=== PATIENT | male | born 1950 | race Caucasian/White ===

== ENCOUNTER → 2016-08-01 | Outpatient (CLI) | payer MEDICARE, OTHER ==
--- NOTE | 2016-08-03 16:34 | RAD ---
EXAM DESCRIPTION: Pelvis, two views CLINICAL HISTORY: BONE PAIN FINDINGS/ IMPRESSION: No fracture. No lytic or blastic bony lesion. No advanced osteoarthritis of the hip joints or the sacroiliac joints or pubic symphysis. Mild osteoarthritis of the sacroiliac joints. 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
== END | disposition home or self-care (01) ==
LOC: RAD 13:42
PROVIDERS: ATTEND Nurse Practitioner Family
DX: M89.9 Disorder of bone, unspecified (principal)

== ENCOUNTER → 2017-02-27 | Outpatient (CLI) | payer MEDICARE, OTHER | END | disposition home or self-care (01) | LOC: GMAL 10:29 | PROVIDERS: ATTEND Family Medicine | DX: D51.3 Other dietary vitamin B12 deficiency anemia (principal); Z12.5 Encounter for screening for malignant neoplasm of prostate; E55.9 Vitamin D deficiency, unspecified | CPT/HCPCS: 82306; 82607; G0103 ==

== ENCOUNTER → 2017-05-13 | Outpatient (CLI) | payer MEDICARE, OTHER ==
--- NOTE | 2017-05-14 11:16 | MRI ---
EXAM DESCRIPTION: MRI right knee CLINICAL HISTORY: Right knee pain and swelling COMPARISON: None. TECHNIQUE: Multiplanar, multisequence MR images of the right knee FINDINGS: Tear of the posterior horn and body medial meniscus. The posterior horn is blunted along the free edge near the root attachment. Linear oblique tear through the inferior articular surface at the posterior horn/body junction and body with subluxation of the residual meniscus and marked blunting of the body. Medial femorotibial osteoarthritis with full-thickness chondral loss along both sides of the weightbearing joint. Minimal edema. Small joint line osteophytes No lateral meniscal tear. There is a ganglion associated with the anterior horn root attachment which measures about 8 x 4 x 5 mm. No full-thickness or high-grade lateral femorotibial chondrosis Patellar chondral thinning and surface irregularity. Grade 4 chondrosis upper lateral trochlea over approximately 0.5 x 0.9 cm with underlying subchondral edema. Grade 4 chondrosis along the margin of the lower medial patella with a marginal osteophytes and broad region of edema. Trochlear chondrosis, high-grade chondral thinning over a large region which spans both medially and laterally, approximately 2.9 cm transverse by 3 cm craniocaudal. Small focus of edema central apex of the trochlea Large intraligamentous ganglion of the ACL compatible with remote interstitial partial tear. Focal contour bulge anteriorly just proximal to the tibial insertion. PCL, MCL and fibular collateral ligaments are intact Biceps femoris, popliteus and iliotibial band tendons are normal. Chronic proximal medial patellar tendinosis without acute abnormality. Quadriceps tendon and tendons of the posterior medial knee are intact Large joint effusion with degenerative synovitis. Bose's cyst which measures about 4.6 x 2.1 x 1.8 cm, partially decompressed with edema tracking both superiorly and inferiorly. No intra-articular loose body IMPRESSION: Tear of the posterior horn and body medial meniscus with loss of meniscal substance along the body Chondrosis most significantly affecting medial femorotibial and patellofemoral Intraligamentous ganglion ACL compatible with a prior remote interstitial partial tear Joint effusion and Bose's cyst, partially decompressed Electronically signed by: Qamar Hernandez MD 05/14/2017 11:15 AM [facility]
== END | disposition home or self-care (01) ==
LOC: MRI 11:40
PROVIDERS: ATTEND Family Medicine
DX: M23.211 Derangement of anterior horn of medial meniscus due to old tear or injury, right knee (principal); M25.461 Effusion, right knee

== ENCOUNTER → 2017-07-08 | Outpatient (CLI) | payer OTHER ==
--- NOTE | 2017-07-08 20:34 | US ---
EXAM DESCRIPTION: Soft Tissue,Abdomen: ULTRASOUND. CLINICAL HISTORY: MASS. Right lower back. COMPARISON: None Available. TECHNIQUE: Transcutaneous scanning: Two-dimensional and Doppler modes. FINDINGS: Slightly hyperechoic mass measuring 3.6 x 2.3 x 1.1 cm parallel to the posterior abdominal wall. Corresponds to palpable lesion. Relatively homogeneous echoes, with adjacent adipose tissues slightly less echogenic. No fluid collections or calcifications. Nonvascular. IMPRESSION: 3.6 cm mass right lower back cutaneous tissues most likely a lipoma. Slightly hyperechoic in the adjacent adipose tissue. Nonvascular. No fluid component. Electronically signed by: Yoan Berkowitz MD 07/08/2017 8:33 PM DESK TOP PUBLISHER Workstation: [id number]
== END ==
LOC: US 14:18
PROVIDERS: ATTEND Nurse Practitioner Acute Care
DX: R22.9 Localized swelling, mass and lump, unspecified (principal)

== ENCOUNTER 2017-07-23 08:00 | Day surgery (SDC) | payer OTHER ==
--- NOTE | 2017-07-21 15:25 | RAD ---
EXAM DESCRIPTION: Chest,2 Views CLINICAL HISTORY: pre op COMPARISON: None FINDINGS: Two-view chest x-ray shows cardiomediastinal silhouette and pulmonary vasculature to be within normal limits. The lungs are normally aerated and clear. Costophrenic angles are sharp. Osseous structures are unremarkable. Mild bilateral apical pleural thickening is seen without obvious bony erosive changes. Consider short-term imaging follow-up. IMPRESSION: No radiographic evidence of acute cardiopulmonary disease. Electronically signed by: Fernando Boucher MD 07/21/2017 3:24 PM [facility]
[~2017-07-23 08:00] MED LIST: DEXAMETHASONE INJ 10 MG/ML VIAL ONE; LACTATED RINGERS 1,000 ML ONE; LIDOCAINE 2 % GEL 5 ML TUBE TOP ONE; METOCLOPRAMIDE HCL INJ 10 MG/2 ML VIAL ONE; MIDAZOLAM INJ 2 MG/2 ML VIAL ONE; NEOSTIGMINE METHYLSULFATE 1 MG/ML ML IV ONE; PROPOFOL 200 MG/20 ML VIAL IV ONE; ROCURONIUM BROMIDE 10 MG/ML VIAL ONE; SODIUM CHL 0.9% 100ML MINI-BAG 100 ML IVPB ONE; ceFAZolin SODIUM 1 GM VIAL ONE; fentaNYL CITRATE INJ 50 MCG/ML AMP ONE
[2017-07-23] MEDS ORDERED: BUPIVACAINE 0.25% W/EPI 50 ML VIAL INJ ONE (08:29)
--- NOTE | 2017-07-23 09:45 | OP ---
DATE OF PROCEDURE: 07/23/17 PREOPERATIVE DIAGNOSIS: 1. Tender subcutaneous mass, right midback. POSTOPERATIVE DIAGNOSIS: 1. Tender subcutaneous mass, right midback. PROCEDURE: 1. Excision of subcutaneous mass, right midback. SURGEON: Timmy Rob MD. SCRAPER OPERATOR: None. ANESTHESIA: Local infiltration of 0.25% Marcaine with epinephrine and general endotracheal anesthesia. INDICATION: The patient is a 67-year-old male with a mass that is tender. His primary care physician obtained an ultrasound which revealed it to be a subcutaneous mass, likely lipoma. He was brought to the Surgical Suite today for excision after the risks, benefits and alternatives to the procedure were discussed and accepted at the office including recommendation for this to be done under local, but the patient prefers general anesthesia. FINDINGS: The mass was identified in the immediate subcutaneous tissue. The underlying muscular fascia was opened with no extension into the muscle. PROCEDURE: After the patient was brought to the Surgical Suite and placed under general endotracheal anesthesia, he was then turned into the supine position and prepped and draped in the usual sterile manner. The kidney break was used. Surgical time-out was taken. The lesion which had been previously marked, transverse incision was made over the mass, first with a marking pen and then with infiltration of anesthesia. The skin was incised with a knife. The lesion was identified and then was resected using electrocautery and blunt dissection. When this was done, as noted, there was almost feeling of fullness in the muscle, so the fascia was opened under the lesion. Nothing was identified deep, so the fascia was closed with interrupted 2-0 Vicryl sutures. The wound was irrigated with saline. Hemostasis was noted to be adequate. Subcutaneous tissue was loosely reapproximated with interrupted 3-0 Vicryl. The skin edges were approximated with 3-0 Nylon vertical mattress sutures. A sterile pressure dressing was applied. The patient was awakened and taken to the Recovery Room in stable condition. Estimated blood loss was less than 25 mL. All sponge, needle and instrument counts were correct. #[id number] [facility]
[2017-07-23 11:08] VITALS: BP 127/72; TEMP 97; O2SAT 98
== END 2017-07-23 11:00 | disposition home or self-care (01) ==
LOC: AMB 08:00
PROVIDERS: ATTEND Surgery
DX: D17.1 Benign lipomatous neoplasm of skin and subcutaneous tissue of trunk (principal); K58.9 Irritable bowel syndrome, unspecified; K21.9 Gastro-esophageal reflux disease without esophagitis; J45.909 Unspecified asthma, uncomplicated; Z87.891 Personal history of nicotine dependence; Z88.8 Allergy status to other drugs, medicaments and biological substances; Z79.899 Other long term (current) drug therapy

== ENCOUNTER 2017-08-12 16:31 | Emergency (ER) | payer MEDICARE, OTHER ==
--- NOTE | 2017-08-12 16:49 | ED.PDOC ---
History of Present Illness - General Chief Complaint: Laceration Stated Complaint: laceration right ring finger Time Seen by Provider: 08/12/17 16:43 Source: patient Exam Limitations: no limitations - History of Present Illness Initial Comments: Alejandro Saldana 67 y/o male stated he was helping to bring down 2 metal recliners from a trailer but right ring finger caught in between the recliner causing laceration and deformity on his right ring finger which happened a few hours ago. Occurred: just prior to arrival Pain - Upper Extremity: moderate: Hand, right - right ring finger Method of Injury: other - see hpi Improving Factors: rest Worsening Factors: movement Allergies/Adverse Reactions: Allergies NO KNOWN ALLERGY Allergy (Verified 08/12/17 16:44) Home Medications: Ambulatory Orders Ascorbic Acid [Vitamin C] 1,000 mg PO DAILY 03/08/15 Aspirin [Baby Aspirin] 81 mg PO QD 03/08/15 Calcium Carbonate-Cholecalcife [Calcium + D] 2 tab PO DAILY 03/08/15 Montelukast Sodium 10 mg PO DAILY 03/08/15 Multiple Vitamins W/ Minerals [Centrum] 1 tab PO DAILY 03/08/15 Oxybutynin Chloride [Oxybutynin Chloride ER] 5 mg PO BID 03/08/15 Potassium Gluconate 595 mg PO DAILY 03/08/15 Psyllium [Metamucil] 0.52 - 1.04 gm PO DAILY@0700 03/08/15 Rosuvastatin [Crestor] 5 mg PO DAILY 03/08/15 Tamsulosin [Flomax] 0.4 mg PO QD 03/08/15 Vitamin E [E-400] 400 unit PO DAILY 03/08/15 Acetaminophen W/ Codeine [Tylenol w/Codeine 300-30 mg] 1 tab PO Q4HR PRN #30 tab 08/12/17 Cephalexin 1,000 mg PO BID #30 cap 08/12/17 Loratadine [Claritin] 10 mg PO DAILY 08/12/17 Review of Systems - Review of Systems Constitutional: States: no symptoms reported EENTM: States: no symptoms reported Respiratory: States: no symptoms reported Cardiology: States: no symptoms reported Gastrointestinal/Abdominal: States: no symptoms reported Musculoskeletal: States: see HPI Skin: States: see HPI Past Medical History (General) - Patient Medical History Hx Seizures: No Hx Stroke: No Hx Dementia: No Hx Asthma: No Hx of COPD: No Hx Cardiac Disorders: No Hx Congestive Heart Failure: No Hx Pacemaker: No Hx Hypertension: Yes Hx Thyroid Disease: No Hx Diabetes: No Hx Gastroesophageal Reflux: No Hx Renal Disease: No Hx of HIV: No Hx MRSA: No MRSA Source:: Wound Surgical History: other - right shoulder and forearm - Social History Hx Tobacco Use: No Hx Alcohol Use: No Hx Substance Use Treatment: No Family Medical History - Family History Mother Family History: Unknown Grandparents Family History: Unknown Physical Exam - Physical Exam General Appearance: Alert, Comfortable, No apparent distress Eyes, Ears, Nose, Throat Exam: normal ENT inspection Neck: non-tender, supple Cardiovascular/Respiratory: regular rate, rhythm, no M/R/G, normal peripheral pulses Abdominal Exam: non-tender, no organomegaly Back Exam: no CVA tenderness, no vertebral tenderness Shoulder Exam: normal inspection, non-tender, no evidence of injury Elbow/Forearm Exam: no evidence of injury Wrist Exam: no evidence of injury Hand Exam: laceration - right ring finger with deformity distal phalanx Progress - Progress Progress: 08/12/17 19:10 Vital Signs - 8 hr 08/12/17 08/12/17 16:44 17:37 Temperature 98.8 F Pulse Rate [R 101 H 75 Hand] Respiratory 20 20 Rate Blood Pressure 143/92 147/83 [Left Arm] O2 Sat by Pulse 97 95 Oximetry 08/12/17 19:24 D/W Dr. Shaikh orthopedist advised to reapeir laceration after adequate cleansing, give Rocephin and oral antibiotics .He will see patient in one week at his office - EKG/XRAY/CT XRAY: hand - fracture distal phalanx ring finger right displaced Procedures - Splinting Right 4th Digit Hand Hand-Made Type: orthoglass Splint: gutter splint Pre-Proc Neuro Vasc Exam: normal Post-Proc Neuro Vasc Exam: normal Progress: post reduction x -ray anatomic alignment right distal 4th digit - Laceration/Wound Repair Right Dorsal Finger Wound Length (cm): 2 - complex Wound's Depth, Shape: irregular Wound Explored: no foreign body removed Irrigated w/ Saline (cc's): 30 Betadine Prep?: No - hibiclens Anesthesia: 1% Lidocaine Volume Anesthetic (cc's): 8 - metacarpal block Wound Repaired With: sutures Suture Size/Type: 4:0, nylon Number of Sutures: 7 Layer Closure?: No Departure - Departure Clinical Impression: Open fracture of distal phalanx of ring finger Qualifiers: Encounter type: initial encounter Fracture alignment: displaced Laterality: right Qualified Code(s): S62.634B - Displaced fracture of distal phalanx of right ring finger, initial encounter for open fracture Time of Disposition: 19:14 Disposition: Discharge to Home or Self Care Condition: Good Departure Forms: ED Discharge - Pt. Copy, Patient Portal Self Enrollment Instructions: DI for Laceration Repair, DI for Laceration Repair -- Finger Referrals: Benton Gray III, MD [Primary Care Provider] - 1-2 Weeks Prescriptions: Acetaminophen W/ Codeine [Tylenol w/Codeine 300-30 mg] 1 tab PO Q4HR PRN #30 tab PRN Reason: Pain Cephalexin 1,000 mg PO BID #30 cap Home Medications: Ambulatory Orders Ascorbic Acid [Vitamin C] 1,000 mg PO DAILY 03/08/15 Aspirin [Baby Aspirin] 81 mg PO QD 03/08/15 Calcium Carbonate-Cholecalcife [Calcium + D] 2 tab PO DAILY 03/08/15 Montelukast Sodium 10 mg PO DAILY 03/08/15 Multiple Vitamins W/ Minerals [Centrum] 1 tab PO DAILY 03/08/15 Oxybutynin Chloride [Oxybutynin Chloride ER] 5 mg PO BID 03/08/15 Potassium Gluconate 595 mg PO DAILY 03/08/15 Psyllium [Metamucil] 0.52 - 1.04 gm PO DAILY@0700 03/08/15 Rosuvastatin [Crestor] 5 mg PO DAILY 03/08/15 Tamsulosin [Flomax] 0.4 mg PO QD 03/08/15 Vitamin E [E-400] 400 unit PO DAILY 03/08/15 Acetaminophen W/ Codeine [Tylenol w/Codeine 300-30 mg] 1 tab PO Q4HR PRN #30 tab 08/12/17 Cephalexin 1,000 mg PO BID #30 cap 08/12/17 Loratadine [Claritin] 10 mg PO DAILY 08/12/17 Additional Instructions: Call up Dr. Shaikh office -Orthopedist in am for follow up;Continue with home medications;Elevate right hand 20 degrees at bedtimeReturn to ER as needed
--- NOTE | 2017-08-12 17:15 | RAD ---
EXAM DESCRIPTION: Fingers,Right CLINICAL HISTORY: laceration COMPARISON: None. TECHNIQUE: 3 views of the fourth digit of the right hand dated 12 August 2017 FINDINGS: A transverse fracture the midshaft of the distal phalanx of the fourth digit of the right hand is observed. Mild radial angulation of the distal fracture fragment is observed. There is also a half shaft width of posterior displacement of the distal fracture fragment. IMPRESSION: Fracture the midshaft of the distal phalanx of the fourth digit of the right hand is observed. Electronically signed by: Benton Sánchez MD 08/12/2017 5:14 PM [facility]
[2017-08-12] MEDS ORDERED: TETANUS,DIPHTHERIA,PERTUSSIS 1 EA SYG IM ONE (17:33)
[2017-08-12 17:39] VITALS: O2SAT 95
[2017-08-12] MEDS ORDERED: LIDOCAINE 1% 10 ML VIAL INJ ONE ×2 (17:46→19:39)
[2017-08-12] MEDS ORDERED: WATER FOR INJ 10 ML VIAL INJ ONE ×2 (18:09→18:11)
[2017-08-12] MEDS ORDERED: CHLORHEXIDINE GLUCONATE 4 % 15 ML UD TOP ONE (18:09)
--- NOTE | 2017-08-12 18:52 | RAD ---
EXAM DESCRIPTION: Fingers,Right CLINICAL HISTORY: Post-reduction COMPARISON: None FINDINGS: 3 views were submitted. There is a fracture at the base of the right fourth distal phalanx in anatomic alignment.. Bone marrow attenuation is unremarkable. No radiopaque foreign body is identified. IMPRESSION: Fourth distal phalanx fracture is close to the nailbed and should be treated as an open fracture equivalent.. Electronically signed by: Yoan Lemos 08/12/2017 6:51 PM [facility]
[2017-08-12] MEDS ORDERED: HYDROCOD/APAP 10/325 (ER DISP) # 3 tablets PO ONE (19:12)
[2017-08-12] MEDS ORDERED: cefTRIAXone SODIUM 1 GM VIAL IM ONE (19:12)
[2017-08-12] MEDS ORDERED: HYDROcodone 10MG/APAP 325MG 1 EA TAB PO ONE (19:12)
[2017-08-12 19:46] VITALS: BP 138/79; TEMP 97.9
== END 2017-08-12 19:48 | disposition home or self-care (01) ==
LOC: ER 16:31
DX: S62.634B Displaced fracture of distal phalanx of right ring finger, initial encounter for open fracture (principal); I10 Essential (primary) hypertension; W23.0XXA Caught, crushed, jammed, or pinched between moving objects, initial encounter
CPT/HCPCS: 73140; 90471; 90715; A4216; J0696

== ENCOUNTER → 2017-10-12 | Outpatient (CLI) | payer MEDICARE, OTHER ==
--- NOTE | 2017-10-12 13:27 | RAD ---
EXAM DESCRIPTION: Hand,Right 3 Views CLINICAL HISTORY: FX COMPARISON: None Available. TECHNIQUE: AP, LATERAL, AND OBLIQUE FINDINGS: Three-view right hand shows a transversely oriented fracture of the distal phalanx of the fourth finger. Dressing surrounds the abnormal area. No radiopaque foreign body. Tiny bone fragment is present anteriorly. There is mild dorsal angulation. IMPRESSION: Fracture distal phalanx of the fourth digit of the right hand. Electronically signed by: Jeff Mendes MD 10/12/2017 1:25 PM CDT
== END ==
LOC: RAD 12:09
PROVIDERS: ATTEND Family Medicine
DX: S62.664A Nondisplaced fracture of distal phalanx of right ring finger, initial encounter for closed fracture (principal)

== ENCOUNTER → 2017-12-07 | Outpatient (CLI) | payer MEDICARE, OTHER ==
--- NOTE | 2017-12-07 16:35 | MRI ---
EXAM DESCRIPTION: Brain w/wo Contrast: Magnetic Resonance Imaging. CLINICAL HISTORY: MEMORY LOSS COMPARISON: MRI scan of the brain without gadolinium contrast 05/19/2016. TECHNIQUE: Multiplanar, high-field MRI, multiple conventional sequences, without and with gadolinium IV contrast. No adverse reactions. Multiple axial diffusion sequences. FINDINGS: Multiple bilateral foci of hyperintense FLAIR and T2-weighted signal in the periventricular white matter and reddy-white matter junctions of the cerebral hemispheres. More numerous in the subcortical white matter than periventricular . Slightly more lesions since the prior study. Chronic lesions are stable in size. These lesions are not associated with hemorrhage or diffusion restriction or contrast enhancement. Normal signal in the bilateral basal ganglia. No hemorrhage, no cerebral edema, no mass-effect. Normal contrast enhancement. Normal signal in the brainstem and cerebellar hemispheres. No hemorrhage, no cerebral edema, no mass-effect. Normal contrast enhancement. Concordance of the diffusion and non-diffusion sequences with no evidence of acute or subacute infarction. Cortical sulci, ventricles, and other CSF spaces, and the subdural spaces are normally configured.. No effacement or displacement. No midline shift. No extra-axial hemorrhage. Normal contrast enhancement. Normal flow signal void in the major vessels of the [place], and the venous sinuses. Left vertebral artery dominant. IACs are symmetric bilaterally. Normal signal in the bilateral mastoid air cells. No mass effect in the bilateral Cerebellopontine angles. Normal contrast enhancement. Pituitary gland occupies most of the sella. Normal contrast enhancement. Base of the cerebellar tonsils is above the foramen magnum. Mucoperiosteal thickening in some of the cavities of the paranasal sinuses. The bony calvarium is intact. Retro-orbital structures and facial muscles are grossly normal. IMPRESSION: 1. Diffuse abnormal white matter signal in the subcortical white matter more than the periventricular white matter. Slightly more lesions compared to the prior study. Not associated with hemorrhage, diffusion restriction, or contrast enhancement. Most likely related to cerebral microvascular disease. Less likely demyelinating process, migraine headaches, vasculitis, or inflammation. No extra-axial hemorrhage. 2. Normal signal in the brainstem and cerebellar hemispheres. Normal MRI noncontrast diffusion study with no evidence of acute or subacute infarction. Electronically signed by: Yoan Berkowitz MD 12/07/2017 4:34 PM CDT
== END ==
LOC: RAD 11:07
PROVIDERS: ATTEND Family Medicine
DX: R41.81 Age-related cognitive decline (principal); D51.3 Other dietary vitamin B12 deficiency anemia; R53.82 Chronic fatigue, unspecified

== ENCOUNTER → 2018-01-01 | Outpatient (CLI) | payer MEDICARE, OTHER ==
--- NOTE | 2018-01-01 16:03 | US ---
EXAM DESCRIPTION: Carotid Duplex CLINICAL HISTORY: CEREBROVASCULAR DISEASE COMPARISON: None Available. TECHNIQUE: Carotid Doppler ultrasound FINDINGS: Right Submitted images show no significant stenosis in the common carotid, internal carotid or external carotid arteries. Mild plaque at the carotid bifurcation. The following flow velocities were obtained: Common carotid artery peak systolic flow velocity measures 86 centimeters per second. Internal carotid artery peak systolic flow velocity measures 59 centimeters per second. External carotid artery peak systolic flow velocity measures 102 centimeters per second. Flow in the right vertebral artery is antegrade. The right internal carotid to common carotid peak systolic flow velocity ratio equals 0.7 which is normal. Left Submitted images show normal caliber of the left common carotid, internal carotid and external carotid arteries with no significant stenosis. The following flow velocities were obtained: Common carotid artery peak systolic flow velocity measures 103 centimeters per second. Internal carotid artery peak systolic flow velocity measures 61 centimeters per second. External carotid artery peak systolic flow velocity measures 107 centimeters per second. Flow in the left vertebral artery is antegrade. The left internal carotid to common carotid peak systolic flow velocity ratio of 0.6 is normal. IMPRESSION: No hemodynamically significant stenosis. Electronically signed by: Jeff Mendes MD 01/01/2018 4:02 PM CDT
== END ==
LOC: US 13:37
PROVIDERS: ATTEND Psychiatry & Neurology Neurology
DX: I67.89 Other cerebrovascular disease (principal)

== ENCOUNTER → 2018-02-09 | Outpatient (CLI) | payer MEDICARE, OTHER | LOC: GMAL 19:31 | PROVIDERS: ATTEND Family Medicine | DX: N39.0 Urinary tract infection, site not specified (principal); Z12.5 Encounter for screening for malignant neoplasm of prostate | CPT/HCPCS: 87086; G0103 ==

== ENCOUNTER → 2018-02-11 | Outpatient (CLI) | payer MEDICARE, OTHER ==
--- NOTE | 2018-02-11 16:35 | CT ---
EXAM DESCRIPTION: Head CLINICAL HISTORY: HISTORY OF FALLING COMPARISON: MRI December 07, 2017 TECHNIQUE: Noncontrast transaxial CT images of the head are obtained from base to vertex. This exam was performed according to our departmental dose-optimization program, which includes automated exposure control, adjustment of the mA and/or kV according to patient size and/or use of iterative reconstruction technique. FINDINGS: The midline structures are not displaced. Sulci are age-appropriate. There are areas of decreased attenuation in the periventricular white matter and the white matter of the centrum semiovale. There is no evidence of mass, mass-effect, hydrocephalus, or acute intracranial hemorrhage. No abnormal extra axial fluid collection is seen. Bone windows show no evidence of depressed skull fracture. Mild calcifications of the intracranial carotid arteries are noted. The visualized paranasal sinuses are unremarkable. IMPRESSION: 1. Age-appropriate atrophy with evidence of old small vessel ischemic type changes seen. 2. No acute abnormality is seen on noncontrast CT of the head. Electronically signed by: Fernando Boucher MD 02/11/2018 4:34 PM CDT
== END ==
LOC: MRI 16:03
PROVIDERS: ATTEND Physician Assistant
DX: Z91.81 History of falling (principal); G31.1 Senile degeneration of brain, not elsewhere classified

== ENCOUNTER → 2018-02-16 | Outpatient (CLI) | payer MEDICARE, OTHER ==
--- NOTE | 2018-02-16 18:10 | US ---
EXAM DESCRIPTION: Breast,Bilateral: Ultrasound CLINICAL HISTORY: 67 yearsMaleABN MAMMO. Patient fell. Complaining of pain upper outer quadrant right breast. Also over the medial left breast abutting the sternum No palpable mass in either location. COMPARISON: Digital diagnostic digital breast tomosynthesis and 2-D mammogram bilateral on this visit. TECHNIQUE: Transcutaneous scanning of the bilateral breast utilizing reddy-scale and Doppler modes. Scanning performed by the mud jack operator and Dr. Berkowitz. FINDINGS: Scanning at the 1100 clock position of the right breast 6 cm from the nipple. Scanning at the 900 clock position of the left breast 5 cm from the nipple. No distinct solid mass or cyst. No abnormal vascularity and no skin changes. No large calcifications or parenchymal edema.. IMPRESSION: 1. Bi-Rads Category 2: Benign. 2. Please refer to bilateral digital breast diagnostic tomosynthesis and diagnostic 2-D images and report on this visit. The FINDINGS and the FOLLOW-UP plan were reviewed in person with the patient after the examination. Written communication explaining the IMPRESSION and FOLLOW-UP will be mailed to the patient and referring care provider. Electronically signed by: Yoan Berkowitz MD 02/16/2018 6:09 PM CDT
--- NOTE | 2018-02-17 14:27 | MAM ---
EXAM DESCRIPTION: 3D Diagnostic, Bilateral: Digital Mammography CLINICAL HISTORY: 67 yearsMaleBREAST LUMP . Patient early dementia. Fell on sidewalk. Pain right upper quadrant right breast and medial left breast. COMPARISON: Targeted bilateral breast ultrasound following this examination. No prior reports available.. TECHNIQUE: Bilateral CC LM MLO projection full-field images, digital mammographic tomosynthesis technique. Skin marker over tender area upper outer quadrant right breast. CAD not utilized. FINDINGS: The breast parenchymal density pattern is: Almost entirely fatty. No skin thickening or nipple retraction skin marker is seen on the right breast. No new focal, stellate mass or density, focal asymmetry , and no suspicious microcalcifications bilaterally. Ultrasound: Scanning at the 1100 clock position of the right breast 6 cm from the nipple. Scanning at the 900 clock position of the left breast 5 cm from the nipple. No distinct solid mass or cyst. No abnormal vascularity and no skin changes. No large calcifications or parenchymal edema.. IMPRESSION: Benign exam. BIRAD CATEGORY: 2 BENIGN FINDINGS. RECOMMENDATIONS: FOLLOW UP: Any further breast imaging should be based upon additional clinical findings. Electronically signed by: Yoan Berkowitz MD 02/17/2018 2:25 PM CDT
== END ==
LOC: MAMMO 12:30
PROVIDERS: ATTEND Physician Assistant
DX: N63.20 Unspecified lump in the left breast, unspecified quadrant (principal)
CPT/HCPCS: 76641; 77066; G0279

== ENCOUNTER → 2018-03-11 | Outpatient (CLI) | payer MEDICARE, OTHER | LOC: GMAL 16:43 | PROVIDERS: ATTEND Family Medicine | DX: R39.15 Urgency of urination (principal); N41.8 Other inflammatory diseases of prostate ==

== ENCOUNTER → 2018-03-12 | Outpatient (CLI) | payer MEDICARE, OTHER ==
--- NOTE | 2018-03-12 10:35 | CT ---
EXAM DESCRIPTION: Abdoment/Pelvis w/o Contrast CLINICAL HISTORY: 68 years Male, ABDOMINAL PAIN COMPARISON: 21 Oct 2013 TECHNIQUE: Transaxial images were obtained without intravenous or oral contrast media. Sagittal and coronal reconstruction was obtainedThis exam was performed according to our departmental dose-optimization program, which includes automated exposure control, adjustment of the mA and/or kV according to patient size and/or use of iterative reconstruction technique. FINDINGS: The lung bases are clear. The liver and spleen are normal in appearance. No biliary ductal abnormality is seen. The gallbladder is normal in appearance. No adrenal masses are detected. The pancreas is normal in appearance. Imaging of the kidneys reveals no evidence of hydronephrosis mass cyst or calcification. Diverticulosis of the sigmoid and descending colon is observed without evidence of diverticulitis. The appendix is identified and is normal in appearance. No bone abnormality is seen. No free pelvic fluid is observed. No inguinal region abnormality is detected. IMPRESSION: 1. Uncomplicated diverticulosis of the colon Electronically signed by: Benton Sánchez MD 03/12/2018 10:34 AM CDT
== END ==
LOC: CT 08:10
PROVIDERS: ATTEND Family Medicine
DX: K57.30 Diverticulosis of large intestine without perforation or abscess without bleeding (principal); R10.84 Generalized abdominal pain

== ENCOUNTER 2018-03-29 21:36 | Inpatient (IN) | payer MEDICARE, OTHER ==
--- NOTE | 2018-03-29 22:25 | ED.PDOC ---
History of Present Illness - General Chief Complaint: GI Problem Stated Complaint: rt upper abd pain Time Seen by Provider: 03/29/18 22:07 Exam Limitations: clinical condition - dementia - History of Present Illness Initial Comments: Alejandro Saldana 68 y/o male brought by family with RUQ pain since 24 March 2018 stated comes and goes during that day but no N/V/D,no hematuria.His pain went away since then but stareted to complain about it Thursday told him to come to hospital but declined again became asymptomatic.Called up his Md today but fully booked then advised to come to ER if symptoms recurs.Has history of dementia.Patient was pointing where he is hurting. Abdominal Pain Onset Location: RUQ Pain Radiation: no radiation Quality: moderate, other - patient unable to describe just tells pain Timing/Duration: other - see hpi Improving Factors: nothing Worsening Factors: nothing Associated Symptoms: denies symptoms Review of Systems - Review of Systems Constitutional: States: other - loss of appetite; weight loss EENTM: States: no symptoms reported Respiratory: States: no symptoms reported Cardiology: States: no symptoms reported Gastrointestinal/Abdominal: States: see HPI Genitourinary: States: no symptoms reported Skin: States: no symptoms reported Neurological: States: see HPI, other - dementia Past Medical History (General) - Patient Medical History Hx Seizures: No Hx Stroke: No Hx Dementia: No Hx Asthma: No Hx of COPD: No Hx Cardiac Disorders: No Hx Congestive Heart Failure: No Hx Pacemaker: No Hx Hypertension: Yes Hx Thyroid Disease: No Hx Diabetes: No Hx Gastroesophageal Reflux: No Hx Renal Disease: No Hx Cancer: No Hx of HIV: No Hx Hepatitis C: No Hx MRSA: No MRSA Source:: Wound Surgical History: no surgical history - Vaccination History Hx Tetanus, Diphtheria Vaccination: No Hx Influenza Vaccination: Yes - Social History Hx Tobacco Use: No Hx Chewing Tobacco Use: No Hx Alcohol Use: No Hx Substance Use: No Hx Substance Use Treatment: No Hx Depression: No Hx Physical Abuse: No Hx Emotional Abuse: No Hx Suspected Abuse: No Family Medical History - Family History Grandparents Family History: Unknown Mother Family History: Unknown Physical Exam - Physical Exam General Appearance: Alert, Comfortable, No apparent distress Eyes, Ears, Nose, Throat Exam: normal ENT inspection Neck: non-tender, full range of motion, supple Respiratory: chest non-tender, lungs clear, normal breath sounds Cardiovascular/Chest: normal peripheral pulses, regular rate, rhythm, no murmur Peripheral Pulses: No deficit Gastrointestinal/Abdominal: soft, tenderness - ruq ,no peritoneal signs but positive [place] sign Back Exam: no CVA tenderness, no vertebral tenderness Extremity: non-tender, no pedal edema, no calf tenderness Neurologic: alert, oriented x 3 - disoriented to place Skin Exam: normal color, warm/dry Lymphatic: no adenopathy Progress - Progress Progress: 03/30/18 00:07 Vital Signs - 24 hr 03/29/18 03/30/18 21:45 00:00 Temperature 98.1 F Pulse Rate [ 103 H 96 H monitor] Respiratory 18 16 Rate Blood Pressure 121/76 120/73 [Left Arm] O2 Sat by Pulse 94 L Oximetry - Results/Orders Results/Orders: 03/29/18 22:25 IV Care:Saline Lock per Protoc QSHIFT EKG Assessment DAILY 03/29/18 22:30 EKG STAT 03/29/18 23:40 Hold Metformin x 48Hrs [id number] 03/30/18 00:09 Sodium Chloride 0.9% 1000ML [Ns 1000 ml] 1,000 ml IVS ONCE Laboratory Results - last 24 hr 03/29/18 03/29/18 22:42 23:24 WBC 9.1 RBC 4.46 L Hgb 13.1 L Hct 39.2 L MCV 88.0 MCH 29.3 MCHC 33.5 RDW 13.7 Plt Count 489 H MPV 7.0 L Absolute Neuts (auto) 5.70 Absolute Lymphs (auto) 2.10 Absolute Monos (auto) 0.80 Absolute Eos (auto) 0.40 Absolute Basos (auto) 0.10 Neutrophils % 62.5 Lymphocytes % 23.7 Monocytes % 8.7 Eosinophils % 4.1 Basophils % 1.0 PT 10.3 INR 1.03 PTT (SP) 27.4 Sodium 138 Potassium 3.6 Chloride 105 Carbon Dioxide 25 Anion Gap 11.6 L BUN 12 Creatinine 0.49 L BUN/Creatinine Ratio 24.5 H Random Glucose 84 Serum Osmolality 274.6 L Calcium 9.0 Magnesium 2.2 Total Bilirubin 0.7 Direct Bilirubin 0.1 Indirect Bilirubin 0.6 AST 38 ALT 56 Alkaline Phosphatase 79 Creatine Kinase 27 L CK-MB (CK-2) 1.5 CK-MB (CK-2) % Not Reportable Troponin I 0.03 Serum Total Protein 7.0 Albumin 3.3 Lipase 34 Urine Color Yellow Urine Appearance Clear Urine pH 7.5 Ur Specific [place] 1.015 Urine Protein Negative Urine Glucose (UA) Negative Urine Ketones Negative Urine Blood Negative Urine Nitrite Negative Urine Bilirubin Negative Urine Urobilinogen 1.0 Ur Leukocyte Esterase Negative Urine RBC 0 Urine WBC 0 Ur Epithelial Cells 0-1 Urine Bacteria 0 - EKG/XRAY/CT EKG: Sinus, nonspecific ST T wave Chg Comments: HR-95 XRAY: chest - no acute abnormalities noted CT Ordered: Yes - abd/p-possible cholecystitis;groundglass opacification right lwer lobe lung Departure - Departure Clinical Impression: Acute cholecystitis without calculus, History of dementia Abdominal pain Qualifiers: Abdominal location: right upper quadrant Qualified Code(s): R10.11 - Right upper quadrant pain Time of Disposition: 01:36 Disposition: Admit Patient Condition: Fair Departure Forms: Patient Portal Self Enrollment Referrals: Benton Gray III, MD [Primary Care Provider] - 1-2 Weeks Home Medications: Ambulatory Orders Ascorbic Acid [Vitamin C] 1,000 mg PO DAILY 03/08/15 Aspirin [Baby Aspirin] 81 mg PO QD 03/08/15 Calcium Carbonate-Cholecalcife [Calcium + D] 2 tab PO DAILY 03/08/15 Montelukast Sodium 10 mg PO DAILY 03/08/15 Multiple Vitamins W/ Minerals [Centrum] 1 tab PO DAILY 03/08/15 Oxybutynin Chloride [Oxybutynin Chloride ER] 5 mg PO BID 03/08/15 Potassium Gluconate 595 mg PO DAILY 03/08/15 Psyllium [Metamucil] 0.52 - 1.04 gm PO DAILY@0700 03/08/15 Rosuvastatin [Crestor] 5 mg PO DAILY 03/08/15 Tamsulosin [Flomax] 0.4 mg PO QD 03/08/15 Vitamin E [E-400] 400 unit PO DAILY 03/08/15 Acetaminophen W/ Codeine [Tylenol w/Codeine 300-30 mg] 1 tab PO Q4HR PRN #30 tab 08/12/17 Cephalexin 1,000 mg PO BID #30 cap 08/12/17 Loratadine [Claritin] 10 mg PO DAILY 08/12/17 Decision To Admit - Decistion To Admit Decision to Admit Reason: Admit from ER Decision to Admit Date: 03/30/18 - D/W Dr. Rob-surgeon;Alejandro Payton-ANP/ Hospitalist Decision to Admit Time: 01:36
--- NOTE | 2018-03-29 22:56 | RAD ---
PROCEDURE: XR CHEST 1 VIEW HISTORY: RUQ pain COMPARISON: 07/21/2017 TECHNIQUE: Single projection of the chest was done. FINDINGS: The lung fuchs are well inflated . There are no discrete airspace infiltrates, pneumothoraces or pleural effusions. The pulmonary vascularity is normal. The cardiomediastinal silhouette is unremarkable for patient's age and sex. IMPRESSION: There is no acute pleural-parenchymal process seen in the imaged lung fuchs. Location of Interpretation: Teleradiology Electronically signed by: Baron Richard MD 03/29/2018 10:55 PM CDT Workstation: [id number]
[2018-03-29] MEDS ORDERED: MORPHINE SULFATE INJ 10 MG/ML VIAL IV ONE (23:05)
[2018-03-30] MEDS ORDERED: SODIUM CHLORIDE 0.9% 1000ML 1,000 ML IVS ONE (00:09)
--- NOTE | 2018-03-30 00:55 | CT ---
EXAM: Abdomen/Pelvis w/Contrast CLINICAL INDICATION: 68-year-old male with RIGHT upper quadrant abdominal pain. COMPARISON: 03/12/2018. EXAMINATION: CT of the abdomen and pelvis was performed following intravenous administration of contrast. Oral contrast was not administered. Multiplanar reformatted images were provided. This exam was performed according to our departmental dose optimization program which includes use of automated exposure control, adjustment of the mA and/or kV according to patient size and/or use of iterative reconstruction technique. FINDINGS: Evaluation through the upper abdomen is limited secondary to adjacent patient arm positioning and motion artifact. Chest: Limited evaluation through the lung bases reveals a focal area of loss of the level of the uppermost visualized segment of the RIGHT. Areas of swirled linear opacities are present within and just adjacent to this area of groundglass opacification raising the question of round atelectasis versus consolidation/pneumonia. No gross pneumothoraces or pleural effusion. The Heart size is within normal limits. No pericardial effusion. Abdomen and pelvis: The liver, pancreas, spleen, bilateral kidneys and bilateral adrenal glands are within normal limits. Mild, nonspecific enhancement of the wall of the gallbladder with trace pericholecystic stranding and/or trace fluid raising the concern for acute cholecystitis. The vessels are patent and normal in caliber. No abdominopelvic lymph nodes are noted to be pathologically enlarged by CT measurement criteria. The bowel is within normal limits without abnormal bowel wall thickness or bowel dilation. Diverticular disease without findings to suggest diverticulitis. No free air. No free abdominopelvic fluid collections. The appendix is within normal limits. The osseous structures are within normal limits. IMPRESSION: 1. Mild, nonspecific enhancement of the wall of the gallbladder with trace pericholecystic stranding and/or trace fluid raising the concern for cholecystitis in the correct clinical setting, however unchanged in comparison to CT examination dated 03/12/2018. Further evaluation RIGHT upper quadrant sonography or nuclear medicine scintigraphy may be considered. 2. Linear and groundglass opacification of the RIGHT raising the question of round atelectasis versus consolidation/pneumonia. Please correlate with patient clinical findings and follow-up for resolution. 3. Diverticular disease without findings to suggest diverticulitis. Electronically signed by: Hemalatha Leo MD 03/30/2018 12:53 AM CDT
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
[2018-03-30] MEDS ORDERED: ONDANSETRON INJ 4 MG/2 ML VIAL IV PRN (03:28)
[2018-03-30] MEDS: IV SET AND CAP CHANGE INJ INJ SCH (03:42)
[2018-03-30] MEDS ORDERED: metroNIDAZOLE IV PREMIX 500MG 100 ML IVPB ONE ×3 (03:46→19:40)
[2018-03-30] MEDS: KCL 20MEQ/D5NS 1,000 ML IVS PRN ×2 (04:09→17:37)
[2018-03-30] MEDS: SODIUM CHLORIDE 0.9% (FLUSH) 10 ML SYG IV PRN (04:09)
[2018-03-30] MEDS: metroNIDAZOLE IV PREMIX 500MG 500 MG in PREMIX BAG 1 BAG IVPB SCH ×3 (04:10→20:29)
[2018-03-30] MEDS: levoFLOXacin 750MG IV 750 MG in PREMIX BAG 1 BAG IVPB SCH (05:24)
--- NOTE | 2018-03-30 12:43 | US ---
EXAM DESCRIPTION: Gall Bladder CLINICAL HISTORY: abd pain COMPARISON: CT chest same day TECHNIQUE: Real-time sonographic images of the right upper quadrant of the abdomen are obtained. FINDINGS: Pancreas is unremarkable. The right lobe of the liver measures 16.7cm. The liver is diffusely homogeneous and normal in echogenicity. No focal hepatic mass is seen. The gallbladder is normally distended and contains several foci of increased echogenicity in the neck of the gallbladder measuring up to 6 mm.. No gallbladder wall thickening or pericholecystic fluid is seen. The common bile duct measures 7 mm in greatest diameter. The right kidney measures 12.7 cm. There is a 1.0 x 0.6 x 1.0 cm cyst of the right kidney.. Visualized IVC and abdominal aorta are within normal limits. IMPRESSION: Cholelithiasis without ultrasound evidence of acute cholecystitis. Common bile duct is upper limits of normal to slightly dilated at 7 mm. Electronically signed by: Fernando Boucher MD 03/30/2018 12:42 PM CDT
--- NOTE | 2018-03-30 13:51 | CONS ---
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 He was admitted last night after presenting in the Emergency Room with severe right upper quadrant pain. A CT scan was obtained which revealed a thickened gallbladder wall with a question of inflammatory process around it. There was no fever, no nausea or vomiting. This morning, he was seen and is afebrile. He is basically unresponsive as he has developed some dementia and we have obtained an ultrasound this morning. PAST MEDICAL HISTORY: 1. Diverticulosis. 2. Irritable bowel syndrome. 3. Recently, a dementia of uncertain type. PAST SURGICAL HISTORY: 1. Rotator cuff repair. 2. Right forearm fracture. 3. Right knee arthroscopy. 4. Excision of subcutaneous lipoma of the back by ak. 5. Cardiac catheterization. 6. Colonoscopy. 7. Echocardiogram. CURRENT MEDICATIONS: 1. Xanax. 2. Ativan. 3. Megace. 4. Calcium gluconate. 5. Zoloft. 6. Donepezil. 7. Aspirin. 8. Multivitamins. 9. Claritin. 10. Flonase. 11. Namenda. 12. MiraLAX. 13. Flomax. 14. Crestor. ALLERGIES: NO KNOWN DRUG ALLERGIES. FAMILY HISTORY: Positive for colon cancer. SOCIAL HISTORY: The patient is . He is disabled from dementia. He worked in the oil field. He smoked many years ago but quit in 1989. He rarely used alcohol. REVIEW OF SYSTEMS: Weight loss since August. Gastrointestinal-crawford, he has had spells of diarrhea, but no blood and no urinary symptoms. PHYSICAL EXAMINATION: GENERAL: He responds, but is confused. He continues to say 34 65 and throw it to him. He is in no acute distress. VITAL SIGNS: The patient is currently afebrile, normotensive. HEENT: Sclerae nonicteric. Mucous membranes moist. He is somewhat cachectic appearing, withdrawn cheeks. NECK: Without adenopathy. BACK: Without CVA tenderness. CHEST: Equal breath sounds bilaterally. HEART: Regular rate and rhythm. ABDOMEN: Soft. There is minimal tenderness, if any at all. Bowel sounds are positive. RECTAL: Deferred. EXTREMITIES: Without cyanosis, clubbing or edema. LABORATORY: This morning, white count 9.4, hemoglobin 12, platelet count 462, 000, 60% neutrophils. Chemistries reveal potassium 3.7, creatinine 0.62. Normal liver function tests. Decreased albumin and total protein. Ultrasound revealed no signs of acute cholecystitis, but did reveal gallstones. I reviewed the CT scan and it was unchanged from a previous CT scan from 03/12/18 as far as the wall thickening. Also noted on both CT scans was a large amount of stool, especially in the right colon. ASSESSMENT: 1. Right upper quadrant abdominal pain. 2. Cholelithiasis. 3. Significant dementia. 4. Several other medical problems. PLAN: We will begin a clear liquid diet. We will give the patient doses of cathartics from above and repeat his x-ray and lab in the morning. #[id number] [facility]
[2018-03-30] MEDS: MAGNESIUM HYDROXIDE 30 ML UD PO SCH ×2 (13:56→18:12)
[2018-03-30] MEDS: MORPHINE SULFATE INJ 10 MG/ML VIAL IV PRN ×2 (14:29→20:25)
--- NOTE | 2018-03-30 14:32 | PN ---
SUPERVISING PHYSICIAN: Qamar Valle MD DATE: 03/30/18 SUBJECTIVE: The patient is lying in bed with his eyes closed. He frequently shouts inappropriate phrases. He does occasionally answer questions, but not always appropriately. His and friend are at bedside. He has just taken some Milk of Magnesia and is getting quite agitated as he takes Ativan as needed during the day. Otherwise, he has had no complaints of shortness of breath, chest pain. He does occasionally complain of that right upper quadrant abdominal pain, but it is improved since last night in the Emergency Room. OBJECTIVE: VITAL SIGNS: Afebrile. Heart rate 94. Blood pressure 110/70. Respiratory rate 18. O2 saturation 93% on room air. RESPIRATORY: Essentially clear to auscultation bilaterally. CARDIAC: Regular rate and rhythm. GASTROINTESTINAL: Abdomen is soft. It is nondistended. He grimaces slightly with palpation to the right upper quadrant. Bowel sounds are positive. EXTREMITIES: No cyanosis, clubbing or edema. NEUROLOGIC: He awakens. He is oriented to person only. LABORATORY: Electrolytes are basically within normal limits. Serum total protein is low at 6.1. Albumin is low at 2.8. WBCs 9.4, hemoglobin 12.1, hematocrit 36.6. Gallbladder ultrasound shows cholelithiasis without ultrasound evidence of acute cholecystitis. All other labs and films have been reviewed via the EMR. ASSESSMENT: 1. Right upper quadrant abdominal pain with findings on CT concerning for cholecystitis. Sonogram shows cholelithiasis without evidence of acute cholecystitis. Dr. Rob has been consulted. 2. History of diverticulosis without any current findings on CT indication diverticulitis. 3. Irritable bowel syndrome with last colonoscopy noted to be in [address] Gray with moderate left sided diverticula and three less than 1 cm tubular adenomas removed. 4. 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 5. Constipation per CT scan. PLAN: We will continue present supportive care. Dr. Rob has been consulted on this case and is monitoring his gallbladder issues. I have given him some Milk of Magnesia as recommended by Dr. Rob. Repeat abdominal x-ray in the morning as well as repeat lab. I have also given him Ativan IV p.r.n. for agitation. We will continue with his Levaquin and Flagyl for now. A clear liquid diet has been started. We will monitor the patient closely and follow as needed. Dr. Valle is the collaborating physician and available for consultation. #[id number] [facility]ITALJorge [facility]
[2018-03-30] MEDS ORDERED: DONEPEZIL HCL 5 MG TAB ONE (20:22)
[2018-03-30] MEDS: MEMANTINE 10 MG TAB PO SCH (20:29)
[2018-03-30] MEDS: SERTRALINE HCL 50 MG TAB PO SCH (20:29)
[2018-03-30] MEDS: ASPIRIN (CHEWABLE) 81 MG TAB PO SCH (20:30)
[2018-03-30] MEDS ORDERED: NON-FORMULARY MEDICATION 1 EA MIS (Donepezil Hydrochloride [Donepezil Hcl] 10 MG) PO SCH (21:00)
[2018-03-31] MEDS ORDERED: metroNIDAZOLE IV PREMIX 500MG 100 ML IVPB ONE ×4 (01:53→19:50)
[2018-03-31] MEDS: MORPHINE SULFATE INJ 10 MG/ML VIAL IV PRN ×4 (02:50→22:56)
[2018-03-31] MEDS: metroNIDAZOLE IV PREMIX 500MG 500 MG in PREMIX BAG 1 BAG IVPB SCH ×3 (03:54→20:21)
[2018-03-31] MEDS: KCL 20MEQ/D5NS 1,000 ML IVS PRN ×3 (03:55→22:49)
[2018-03-31] MEDS: levoFLOXacin 750MG IV 750 MG in PREMIX BAG 1 BAG IVPB SCH (05:13)
--- NOTE | 2018-03-31 06:27 | RAD ---
CLINICAL HISTORY:abd pain. :1950. Sex:Male. TECHNIQUE: Supine and upright views of the abdomen. There is no intestinal dilatation. There is no mass. There is no free air. There is no opaque calculus. Skeletal structures are unremarkable. The visible lung bases are clear IMPRESSION: 1. No acute radiographic findings.. Electronically signed by: Fransico Santana MD 03/31/2018 6:26 AM CDT Workstation: [id number]
[2018-03-31] MEDS ORDERED: POLYETHYLENE GLYCOL 3350 17 GM PCKT PO SCH ×2 (09:00)
[2018-03-31] MEDS ORDERED: ROSUVASTATIN 5 MG PO SCH (09:00)
[2018-03-31] MEDS ORDERED: MEGESTROL ACETATE SUSP 400 MG/10 ML UD PO SCH (09:00)
[2018-03-31] MEDS: FLUTICASONE PROP 0.05% NASAL 16 GM BTTL BNAS SCH (09:12)
[2018-03-31] MEDS: MONTELUKAST 10 MG TAB PO SCH (09:12)
[2018-03-31] MEDS: MEMANTINE 10 MG TAB PO SCH ×2 (09:12→21:27)
[2018-03-31] MEDS: TAMSULOSIN 0.4 MG CAP PO SCH (09:12)
[2018-03-31] MEDS: LORATADINE 10 MG TAB PO SCH (09:12)
[2018-03-31] MEDS: POTASSIUM GLUCONATE 595 MG PO SCH (10:51)
[2018-03-31] MEDS: MEGESTROL ACETATE SUSP 400 MG/10 ML UD PO SCH (10:52)
[2018-03-31] MEDS ORDERED: MIDAZOLAM INJ 5 MG/5 ML VIAL IV ONE (11:05)
[2018-03-31] MEDS ORDERED: fentaNYL CITRATE INJ 50 MCG/ML AMP IV ONE (11:05)
[2018-03-31] MEDS ORDERED: VECURONIUM BROMIDE 10 MG VIAL IV ONE (11:05)
[2018-03-31] MEDS: POLYETHYLENE GLYCOL 3350 17 GM PCKT PO SCH (12:32)
[2018-03-31] MEDS ORDERED: ENOXAPARIN SODIUM 40 MG/0.4 ML SYG SUBCU SCH (14:30)
[2018-03-31] MEDS ORDERED: ENOXAPARIN SODIUM 60 MG/0.6 ML SYG SUBCU ONE (15:33)
--- NOTE | 2018-03-31 15:56 | US ---
EXAM DESCRIPTION: Venous,Lower Extremity LT CLINICAL HISTORY: leg swelling COMPARISON: None Available. TECHNIQUE: Left lower extremity venous grayscale, spectral, and color Doppler sonographic images. FINDINGS: There is occlusive deep venous thrombosis throughout the superficial femoral, popliteal, peroneal, and posterior tibial veins. There is some residual flow in the common femoral vein. IMPRESSION: Extensive occlusive deep venous thrombosis in the left leg as described above. Findings called to Rimma Oneill RN, on 03/31/2018 at 1553 hours. Electronically signed by: Johnny Ramon MD 03/31/2018 3:54 PM CDT
--- NOTE | 2018-03-31 16:59 | PN ---
DATE: 03/31/18 SUPERVISING PHYSICIAN: Qamar Valle M.D. SUBJECTIVE: The patient is lying quietly in bed. His is at his bedside. She said that the patient has complained of left lower leg pain and that he had had some shortness of breath at home as well as being very immobile at home over the last month or so. I explained that he would be getting treatment for his left leg DVT in the form of Lovenox and we would treat him after discharge, and he will followup with Dr. Gray. The patient has had no complaints of shortness of breath, nausea, vomiting, diarrhea. He did have several bowel movements from his Milk of Magnesia he was given yesterday. The patient only gives monosyllabic answers to some simple questions. OBJECTIVE: VITAL SIGNS: temperature 98.9, heart rate 87, blood pressure 112/72 , respiratory rate 18, O2 sat is 95% on room air. RESPIRATORY: Essentially clear to auscultation bilaterally. Slightly diminished at the bases. CARDIAC: Regular rate and rhythm. GASTROINTESTINAL: Abdomen is soft, nondistended. He is slightly tender, especially in the epigastric and right upper quadrant. Bowel sounds are hypoactive. NEUROLOGIC: He is awake, alert and oriented to person only. EXTREMITIES: His left lower foot and ankle area are slightly edematous, +2 pedal edema. Right pedal pulse is +2, left pedal pulse is +1. It is slightly warm to the touch. LABORATORY: WBCs are 8.3 with 12.3 hemoglobin and 37.6 hematocrit. Electrolytes are basically within normal limits. Lower extremity Doppler of the left leg shows extensive occlusive DVT in the left leg throughout the superficial femoral, popliteal, peroneal and posterior tibial veins. There is some residual flow in the common femoral vein. Abdominal x-ray shows no acute radiographic findings. All other labs and films have been reviewed via the EMR. ASSESSMENT: 1. Left lower leg deep venous thrombosis per venous Doppler presently being treated with Lovenox at 1 mg per kg. 2. Right upper quadrant abdominal pain with findings on CT concerning for cholecystitis. Sonogram shows cholelithiasis without evidence of acute cholecystitis. Dr. Rob has been consulted. 3. History of diverticulosis without any current findings on CT indication diverticulitis. 4. Irritable bowel syndrome with last colonoscopy noted to be in [address] Isaac with moderate left sided diverticula and three less than 1 cm tubular adenomas removed. 5. 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 6. Constipation per CT scan. PLAN: We will continue present supportive care. I have increased his Lovenox to 1 mg per kg every 12 hours for treatment of his DVT. Will transition him over to Eliquis or Xarelto once the patient begins taking oral medications without difficulty. I have ordered an abdominal x-ray for in the morning. Dr. Rob has advanced his diet to a full liquid. We are encouraging him to eat. Gallbladder issues will be per Dr. Rob. Otherwise we will continue to monitor him closely and follow as needed. Dr. Valle is the collaborating physician available for consultation. #[id number] [facility]
[2018-03-31] MEDS ORDERED: ENOXAPARIN SODIUM 100 MG/ML SYG SUBCU ONE (19:47)
[2018-03-31] MEDS: DONEPEZIL HCL 5 MG TAB PO SCH (21:27)
[2018-03-31] MEDS: ASPIRIN (CHEWABLE) 81 MG TAB PO SCH (21:27)
[2018-03-31] MEDS: SERTRALINE HCL 50 MG TAB PO SCH (21:27)
[2018-04-01] MEDS: MORPHINE SULFATE INJ 10 MG/ML VIAL IV PRN ×2 (01:08→15:14)
[2018-04-01] MEDS: metroNIDAZOLE IV PREMIX 500MG 500 MG in PREMIX BAG 1 BAG IVPB SCH ×3 (03:35→20:35)
[2018-04-01] MEDS: levoFLOXacin 750MG IV 750 MG in PREMIX BAG 1 BAG IVPB SCH (04:52)
--- NOTE | 2018-04-01 07:12 | RAD ---
Procedure: XR ABDOMEN 2 VIEWS SUPINE ERECT Exam Date: 04/01/2018 Ordering Provider: JODI GUEAVRA Clinical Indication: abd pain Comparison: 03/31/2018 Findings: Nonobstructive bowel gas pattern. There is no pneumoperitoneum. There are no suspicious calcifications. There is no acute osseous abnormality. Impression: 1. No acute findings. Electronically signed by: Dilip Lipscomb MD 04/01/2018 7:10 AM CDT
[2018-04-01] MEDS ORDERED: metroNIDAZOLE IV PREMIX 500MG 100 ML IVPB ONE ×2 (07:16→19:55)
[2018-04-01] MEDS: LORATADINE 10 MG TAB PO SCH (08:24)
[2018-04-01] MEDS: ATORVASTATIN 10 MG TAB PO SCH (08:25)
[2018-04-01] MEDS: TAMSULOSIN 0.4 MG CAP PO SCH (08:25)
[2018-04-01] MEDS: MEGESTROL ACETATE SUSP 400 MG/10 ML UD PO SCH (08:25)
[2018-04-01] MEDS: MEMANTINE 10 MG TAB PO SCH ×2 (08:25→20:34)
[2018-04-01] MEDS: MONTELUKAST 10 MG TAB PO SCH (08:25)
[2018-04-01] MEDS: POLYETHYLENE GLYCOL 3350 17 GM PCKT PO SCH (08:26)
[2018-04-01] MEDS: FLUTICASONE PROP 0.05% NASAL 16 GM BTTL BNAS SCH (08:26)
[2018-04-01] MEDS: POTASSIUM GLUCONATE 595 MG PO SCH (08:29)
[2018-04-01] MEDS ORDERED: POLYETHYLENE GLYCOL 3350 17 GM PCKT PO SCH (09:00)
[2018-04-01] MEDS: HYDROcodone 5MG/APAP 325MG 1 EA TAB PO PRN ×2 (09:47→20:34)
--- NOTE | 2018-04-01 10:05 | PN ---
SUPERVISING PHYSICIAN: Qamar Valle M.D. DATE: 04/01/18 SUBJECTIVE: The patient is lying in bed asleep. His and sitter are at his bedside. His did say that the patient had some pain along the right posterior CVA last night. He received some pain medication and it went away. He tolerated his Lovenox without problems. She said he is still picking and choosing as to what oral medications he wants to take and is still quite confused at times, but other than that incident, she said he rested fairly well last night. He has had no shortness of breath, nausea, vomiting or diarrhea. OBJECTIVE: VITAL SIGNS: Afebrile. Heart rate 93. Blood pressure 131/80. Respiratory rate 18. O2 saturation 94% on room air. RESPIRATORY: Essentially clear to auscultation bilaterally. Slightly diminished at the bases, most likely from poor insp effort. CARDIAC: Regular rate and rhythm. GASTROINTESTINAL: Abdomen is soft, nondistended. He is diffusely tender in the right upper quadrant, but there is no rebound tenderness. Bowel sounds are positive. NEUROLOGIC: He is awake, alert and oriented to person only. EXTREMITIES: His left lower leg is still slightly reddened and somewhat edematous. Pedal pulse on the left is +1, pedal pulse on the right is +2. LABORATORY: There are no labs to report at this time. His abdominal x-ray shows no acute findings. CTA of the chest is still pending. ASSESSMENT: 1. Left lower leg deep venous thrombosis per venous Doppler presently being treated with Lovenox at 1 mg per kg. 2. Right upper quadrant abdominal pain with findings on CT concerning for cholecystitis, but sonogram shows cholelithiasis without evidence of acute cholecystitis. Dr. Rob has been consulted and is following the patient. 3. History of diverticulosis without any current findings on CT indication diverticulitis. 4. Irritable bowel syndrome with last colonoscopy noted to be in [address] Gray with moderate left sided diverticula and three less than 1 cm tubular adenomas removed. 5. 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 6. Constipation per CT scan, somewhat resolved. PLAN: We will continue present supportive care. I am still awaiting the results of the CTA of the chest. He is still on Lovenox and we will try to bridge him over to Xarelto when the patient takes p.o. medications more consistently. I will also discuss with Dr. Rob the plan for if his gallbladder needs to be removed. His lab is fairly well stabilized. We will hold on any lab for tomorrow. We will continue to monitor the patient closely and follow as needed. #[id number] [facility]
--- NOTE | 2018-04-01 10:18 | CT ---
EXAM DESCRIPTION: CTA Chest: Computed Tomography. CLINICAL HISTORY: DVT lower extremity COMPARISON: CT abdomen and pelvis 03/30/2018. TECHNIQUE: Spiral-axial scans at 2.5 x 2.5 mm intervals through the pulmonary arteries and chest after bolus infusion of IV contrast. Lung algorithm _1.25 x 2.5 mm axial reconstructions. Sagittal and coronal 2.0 Mm reconstructions. 10.0 mm PE oblique 3-D reformatted images. No adverse reactions. Total Exam DLP: 1005.24 mGy-cm. This exam was performed according to our departmental CT dose-optimization program which includes automated exposure control, adjustment of the mA and/or kV according to patient size and/or use of iterative reconstruction technique; to reduce radiation dose to as low as reasonably achievable (ALARA). FINDINGS: Filling defect in the right upper lobe pulmonary artery branch proximally also involving some of the segmental branches. Large "saddle" embolus involving the pulmonary artery branches to the middle lobe and lower lobe also partially occluding most of the segmental branches in these lobes. An embolus extends from the proximal right pulmonary artery into the proximal left pulmonary artery and into the left upper lobe arterial branch and also partially involving segmental branches. More inferiorly, there are filling defects representing emboli in the lingular branch and left lower lobe branches and some of the segmental branches. Slight density in the superior and lateral aspect of the superior segment of the right lower lobe abutting the pleura and the right major fissure on lung axial sequence 5, images 113-155. Minimal groundglass densities in the anterior periphery of the lingula. Bibasilar pleural thickening. Minimal groundglass density in the left lower lobe. Bilateral apical pleural thickening. Evaluation of the mediastinum limited due to high density artifact from the contrast. No enlarged soft tissue masses or significant adenopathy. No abnormalities in the chest wall, neck base, or axilla. Included abdomen peritoneal cavity with no free fluid or free air. Minimal gallbladder wall thickening. Minimally dilated common bile duct. Normal size and enhancement of the spleen and adrenal glands with a splenule anterior to the spleen. No lytic or blastic lesions in the included thoracic cage bony structures. IMPRESSION: 1. Bilateral pulmonary emboli are more extensive in branches of the right pulmonary artery. 2. Most likely pulmonary infarct in the superior and lateral aspect of the superior segment of the right lower lobe. Less likely to represent pneumonia or a pulmonary mass. Consider follow-up chest radiographs. Groundglass densities in the left lung could represent infiltrate or ischemic changes.1 3. No hilar or mediastinal soft tissue masses or adenopathy. CRITICAL COMMUNICATION: The critical value was discussed directly by phone with NOAM Lucas at approximately 0955 hours, on April 01, 2018. Electronically signed by: Yoan Berkowitz MD 04/01/2018 10:16 AM CDT
[2018-04-01] MEDS: KCL 20MEQ/D5NS 1,000 ML IVS PRN ×2 (11:10→22:05)
[2018-04-01] MEDS: SERTRALINE HCL 50 MG TAB PO SCH (20:34)
[2018-04-01] MEDS: DONEPEZIL HCL 5 MG TAB PO SCH (20:35)
[2018-04-01] MEDS: ENOXAPARIN SODIUM 100 MG/ML SYG SUBCU SCH (20:35)
[2018-04-01] MEDS: ASPIRIN (CHEWABLE) 81 MG TAB PO SCH (20:35)
[2018-04-02] MEDS ORDERED: metroNIDAZOLE IV PREMIX 500MG 100 ML IVPB ONE ×2 (04:16→11:26)
[2018-04-02] MEDS: IV SET AND CAP CHANGE INJ INJ SCH (04:18)
[2018-04-02] MEDS: metroNIDAZOLE IV PREMIX 500MG 500 MG in PREMIX BAG 1 BAG IVPB SCH ×2 (04:18→11:34)
[2018-04-02] MEDS: levoFLOXacin 750MG IV 750 MG in PREMIX BAG 1 BAG IVPB SCH (05:27)
--- NOTE | 2018-04-02 07:16 | RAD ---
EXAM: Two view chest. INDICATION: Shortness of breath. COMPARISON: Chest x-ray: 03/29/2018. FINDINGS: Cardiac silhouette: Unremarkable. [place]: Unremarkable. Lobar consolidation: None. Pleural effusion: None. Pneumothorax: None. Other: None. Bones: Unremarkable. Other: None. IMPRESSION: 1. No acute cardiopulmonary process. Electronically signed by: Fransico Santana MD 04/02/2018 7:15 AM CDT Workstation: [id number]
[2018-04-02] MEDS: MEGESTROL ACETATE SUSP 400 MG/10 ML UD PO SCH (08:11)
[2018-04-02] MEDS: SODIUM CHLORIDE 0.9% (FLUSH) 10 ML SYG IV PRN (08:12)
[2018-04-02] MEDS: ENOXAPARIN SODIUM 100 MG/ML SYG SUBCU SCH (08:12)
[2018-04-02] MEDS: MEMANTINE 10 MG TAB PO SCH ×2 (08:13→20:41)
[2018-04-02] MEDS: LORATADINE 10 MG TAB PO SCH (08:13)
[2018-04-02] MEDS: ATORVASTATIN 10 MG TAB PO SCH (08:13)
[2018-04-02] MEDS: POLYETHYLENE GLYCOL 3350 17 GM PCKT PO SCH (08:13)
[2018-04-02] MEDS: TAMSULOSIN 0.4 MG CAP PO SCH (08:13)
[2018-04-02] MEDS: MONTELUKAST 10 MG TAB PO SCH (08:13)
[2018-04-02] MEDS: KCL 20MEQ/D5NS 1,000 ML IVS PRN ×2 (09:18→19:33)
[2018-04-02] MEDS: FLUTICASONE PROP 0.05% NASAL 16 GM BTTL BNAS SCH (10:01)
[2018-04-02] MEDS: MORPHINE SULFATE INJ 10 MG/ML VIAL IV PRN (11:34)
[2018-04-02] MEDS: POTASSIUM GLUCONATE 595 MG PO SCH (14:11)
--- NOTE | 2018-04-02 14:27 | PN ---
SUPERVISING PHYSICIAN: Qamar Valle MD DATE: 04/02/18 SUBJECTIVE: The patient is resting in bed. He has had some issues through the night when he got a little bit agitated, but he did well with Ativan. His remains at his bedside and is able to help him stay oriented. I did discuss with his after talking to Dr. Gr's office, the neurologist that the family has gone to, although I did not speak to him personally, I left notes that he is awaiting further testing including a PET scan before he makes his final diagnosis. He continues to tolerate Lovenox. He has had no complaints of shortness of breath or chest pains. OBJECTIVE: VITAL SIGNS: Afebrile with temperature 97.8. Pulse 87. Blood pressure 121/ 78. Respirations 16. Saturation 96% on room air. I&Os show positive balance of 2615 with 3215 in, 600 out. Weight 91.2 kg. GENERAL: The patient is resting in bed. He will not open his eyes to verbal commands. He is alert, but easily agitated. CHEST: Lungs clear to auscultation bilaterally, just slightly diminished towards the bases. HEART: Regular rate and rhythm. ABDOMEN: Soft, nontender. Positive bowel sounds. EXTREMITIES: Left leg continues to show slight reddening and edema with pedal pulse on the left 1+, pedal pulse on the right 2+. NEUROLOGIC: He remains oriented to person and is alert and awake. LABORATORY: No additional laboratories to review. RADIOLOGY: Chest x-ray this morning per radiologic interpretation shows no acute cardiopulmonary process. ASSESSMENT: 1. Left lower leg deep venous thrombosis as noted on Doppler studies, currently on Lovenox at 1 mg per kg. 2. Bilateral pulmonary embolism as noted on CT of the chest with more extensive branches in the right pulmonary artery and also a likely pulmonary infarct in the superolateral aspect of the superior segment of the right lobe, currently on Lovenox 1 mg per kg and being hemodynamically stable, secondary to #1. 3. Right upper quadrant abdominal pain with findings on CT showing cholelithiasis, but no evidence of acute cholecystitis with the patient having consultation with Dr. Rob. Pain is likely more related to right lung infarct due to #2. 4. History of diverticulosis without any current findings on CT indicating diverticulitis. 5. Irritable bowel syndrome with no complications. 6. 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 7. Constipation, monitoring. PLAN: I did talk with the . The patient has been made DNR. We talked about treatment plan. I told her I would talk to Dr. Valle as well as Dr. Berkowitz, radiologist. As far as treatment plan, at this point would be possibly vena cava filter at some point and continued anticoagulants and conservative treatment measures. As there are no other signs of infection at this point, we will go ahead and stop his antibiotics. We will try to resume all his home medications as possible. There is a discussion about placing the patient on hospice at discharge. I discussed possible discharge of the patient hopefully in the next [address] Valle and the family. Until discharge , we will continue to monitor the patient closely and treat as needed. #[id number] [facility]
[2018-04-02] MEDS ORDERED: RIVAROXABAN 15 MG TAB PO SCH (18:00)
[2018-04-02] MEDS: RIVAROXABAN 15 MG TAB PO SCH ×2 (19:14→20:41)
[2018-04-02] MEDS: DONEPEZIL HCL 5 MG TAB PO SCH (20:41)
[2018-04-02] MEDS: SERTRALINE HCL 50 MG TAB PO SCH (20:42)
[2018-04-02] MEDS: ASPIRIN (CHEWABLE) 81 MG TAB PO SCH (20:42)
[2018-04-03] MEDS: KCL 20MEQ/D5NS 1,000 ML IVS PRN ×2 (04:18→13:34)
[2018-04-03] MEDS: FLUTICASONE PROP 0.05% NASAL 16 GM BTTL BNAS SCH (09:01)
[2018-04-03] MEDS: ATORVASTATIN 10 MG TAB PO SCH (09:01)
[2018-04-03] MEDS: MONTELUKAST 10 MG TAB PO SCH (09:01)
[2018-04-03] MEDS: RIVAROXABAN 15 MG TAB PO SCH ×2 (09:01→21:09)
[2018-04-03] MEDS: TAMSULOSIN 0.4 MG CAP PO SCH (09:01)
[2018-04-03] MEDS: MEGESTROL ACETATE SUSP 400 MG/10 ML UD PO SCH (09:01)
[2018-04-03] MEDS: LORATADINE 10 MG TAB PO SCH (09:01)
[2018-04-03] MEDS: POTASSIUM GLUCONATE 595 MG PO SCH (09:01)
[2018-04-03] MEDS: POLYETHYLENE GLYCOL 3350 17 GM PCKT PO SCH (09:01)
[2018-04-03] MEDS: MEMANTINE 10 MG TAB PO SCH ×2 (09:03→21:10)
--- NOTE | 2018-04-03 15:23 | PN ---
DATE: 04/03/18 SUPERVISING PHYSICIAN: Qamar Valle M.D. SUBJECTIVE: The patient apparently had a long night, again being agitated. This morning he is very cooperative with exam. He actually got up to go to the bedside commode with no obvious motor deficits. He does talk in very short phrases when he does speak and has not been as aggressive verbally as he has been in the last couple of days. He has had no complaints of shortness of breath, nausea or chest pains. I did talk to his about hospice and she is wanting to get a hospice consultation with [facility] with anticipation of hopefully being able to discharge tomorrow or Thursday. OBJECTIVE: He remains afebrile, temperature 97.4, pulse 97, blood pressure 111/ 71, respirations 18, satting 97% on room air. I's and O's are not well noted as he has had some voids that were not measured and he is incontinent at times. Weight is 88.3 kg. GENERAL: The patient is very flat in his affect and is very pleasant, but is hard to get to answer any questions. He is alert but goes to sleep easily. CHEST: Lungs were clear to auscultation. HEART: Regular rate and rhythm. ABDOMEN: Soft, non-tender. Positive bowel sounds. EXTREMITIES: Left leg shows some 1+ edema compared to the right with some ecchymosis to the foot with pulses being 1+ on the left versus 2+ on the right. NEUROLOGIC: He remains unchanged. He remains alert to person but is having some issues with recalling his 's name and certainly does not know where he is at. There are no obvious neurological deficits. He shows no ataxia on ambulation. LABORATORY: No additional laboratory to repeat today. ASSESSMENT: 1. Left lower leg deep venous thrombosis as noted on Doppler studies now transitioned to Xarelto and tolerating without any complications. 2. Bilateral pulmonary embolisms with extensive branches in the right pulmonary artery as well as a pulmonary infarct in the superolateral aspects of the super segments of the right lobe remaining hemodynamically stable on Xarelto. 3. Right upper quadrant pain on admission with findings on CT showing cholelithiasis but no evidence of cholecystitis acutely, likely pain was related to right lung infarction. Continue to monitor. 4. History of diverticulosis without any complications. 5. Irritable bowel syndrome with no complications noted. 6. Severe dementia of Alzheimer's type with behavioral disturbances, uncertain etiology. 7. Constipation. Continue to monitor. PLAN: After speaking with his this morning, she wants to talk to [facility]. The plan is to hopefully discharge tomorrow or Thursday but she needs a hospital bed and some assistance at home, therefore hopefully [facility] can help with this once they have talked to the family. Will continue with IV fluids but slow them down a little bit as he is showing some more intake orally. Will continue to monitor his output and should he show any constipation issues, certainly will address those. He has been off his antibiotics now for 24 hours without any complications and has been transitioned to Xarelto. Hopefully discharge tomorrow. Until then will continue to monitor and treat as needed. #[id number] [facility]
[2018-04-03] MEDS: ASPIRIN (CHEWABLE) 81 MG TAB PO SCH (21:09)
[2018-04-03] MEDS: SERTRALINE HCL 50 MG TAB PO SCH (21:10)
[2018-04-03] MEDS: DONEPEZIL HCL 5 MG TAB PO SCH (21:10)
[2018-04-04] MEDS: SODIUM CHLORIDE 0.9% (FLUSH) 10 ML SYG IV PRN ×2 (01:00→05:23)
[2018-04-04] MEDS: HYDROcodone 5MG/APAP 325MG 1 EA TAB PO PRN (02:40)
[2018-04-04] MEDS: KCL 20MEQ/D5NS 1,000 ML IVS PRN ×2 (05:22→18:06)
[2018-04-04] MEDS: POLYETHYLENE GLYCOL 3350 17 GM PCKT PO SCH (09:08)
[2018-04-04] MEDS: MEGESTROL ACETATE SUSP 400 MG/10 ML UD PO SCH (09:09)
[2018-04-04] MEDS: MONTELUKAST 10 MG TAB PO SCH (09:09)
[2018-04-04] MEDS: RIVAROXABAN 15 MG TAB PO SCH ×2 (09:09→20:23)
[2018-04-04] MEDS: MEMANTINE 10 MG TAB PO SCH ×2 (09:09→20:24)
[2018-04-04] MEDS: TAMSULOSIN 0.4 MG CAP PO SCH (09:09)
[2018-04-04] MEDS: LORATADINE 10 MG TAB PO SCH (09:09)
[2018-04-04] MEDS: FLUTICASONE PROP 0.05% NASAL 16 GM BTTL BNAS SCH (09:15)
[2018-04-04] MEDS: ATORVASTATIN 10 MG TAB PO SCH (15:54)
--- NOTE | 2018-04-04 16:01 | PN ---
SUPERVISING PHYSICIAN: Qamar Valle MD DATE: 04/04/18 SUBJECTIVE: The patient had a fairly better night last night. He has had some episodes where he has actually been very cooperative and has been conversing with his family at times. He did eat much better last night according to his . He has remained afebrile. He has had no further complaints. [facility] has been consulted and the plan at this oint is to get a hospital bed to his house and discharge tomorrow morning. OBJECTIVE: VITAL SIGNS: Afebrile with temperature 97.6. Pulse 88. Blood pressure 124/ 77. Respirations 18. Saturation 97% on room air. GENERAL: The patient is much more alert this morning. He is cooperative. He appears to be in no distress. CHEST: Lungs clear to auscultation bilaterally, just slightly diminished towards the bases. HEART: Regular rate and rhythm. ABDOMEN: Soft, nontender. Positive bowel sounds. EXTREMITIES: Left leg continues to show slight reddening and edema with pedal pulse on the left 1+, pedal pulse on the right 2+. NEUROLOGIC: He remains oriented to person and is alert and awake. LABORATORY: No additional laboratories today. ASSESSMENT: 1. Left lower leg deep venous thrombosis as noted on Doppler studies, currently on Lovenox at 1 mg per kg. 2. Bilateral pulmonary embolism as noted on CT of the chest with more extensive branches in the right pulmonary artery and also a likely pulmonary infarct in the superolateral aspect of the superior segment of the right lobe, currently on Lovenox 1 mg per kg and being hemodynamically stable, secondary to #1. 3. Right upper quadrant abdominal pain with findings on CT showing cholelithiasis, but no evidence of acute cholecystitis with the patient having consultation with Dr. Rob. Pain is likely more related to right lung infarct due to #2. 4. History of diverticulosis without any current findings on CT indicating diverticulitis. 5. Irritable bowel syndrome with no complications. 6. 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 7. Constipation, monitoring. PLAN: Discharge patient tomorrow. She is making arrangements for a hospital bed at home with [facility] for continued care. He will be discharged on Xarelto for treatment of the bilateral PE and lower extremity DVT. He will need followup with Dr. Gray, his primary care physician, as well as continued followup with Neurology which the is working to secure this following week. Until discharge, we will continue to monitor the patient closely and treat as needed. #[id number] [facility]
[2018-04-04] MEDS ORDERED: ALPRAZolam 0.5 MG TAB PO PRN (19:24)
[2018-04-04] MEDS: SERTRALINE HCL 50 MG TAB PO SCH (20:23)
[2018-04-04] MEDS: LORazepam 0.5 MG TAB PO SCH (20:24)
[2018-04-04] MEDS: ASPIRIN (CHEWABLE) 81 MG TAB PO SCH (20:24)
[2018-04-04] MEDS: DONEPEZIL HCL 5 MG TAB PO SCH (20:24)
[2018-04-04] MEDS ORDERED: ATORVASTATIN 10 MG TAB PO SCH (21:00)
[2018-04-05] MEDS: HYDROcodone 5MG/APAP 325MG 1 EA TAB PO PRN (01:49)
[2018-04-05] MEDS: LORazepam 0.5 MG TAB PO SCH ×3 (02:45→15:08)
[2018-04-05 06:49] VITALS: TEMP 97.8
[2018-04-05] MEDS: MONTELUKAST 10 MG TAB PO SCH (09:00)
[2018-04-05] MEDS: MEMANTINE 10 MG TAB PO SCH (09:01)
[2018-04-05] MEDS: RIVAROXABAN 15 MG TAB PO SCH (09:01)
[2018-04-05] MEDS: MEGESTROL ACETATE SUSP 400 MG/10 ML UD PO SCH (09:01)
[2018-04-05] MEDS: TAMSULOSIN 0.4 MG CAP PO SCH (09:01)
[2018-04-05] MEDS: POLYETHYLENE GLYCOL 3350 17 GM PCKT PO SCH (09:01)
[2018-04-05] MEDS: LORATADINE 10 MG TAB PO SCH (09:38)
[2018-04-05] MEDS: FLUTICASONE PROP 0.05% NASAL 16 GM BTTL BNAS SCH (09:38)
[2018-04-05 13:52] VITALS: BP 138/84; O2SAT 96
--- NOTE | 2018-04-05 20:59 | DS ---
SUPERVISING PHYSICIAN: Brian Baker M.D. ADMISSION DIAGNOSIS: 1. Right upper quadrant abdominal pain with findings on CT concerning for cholecystitis awaiting evaluation of ultrasound of the gallbladder and surgical consultation. 2. History of diverticulosis without any current findings on CT to indicate diverticulitis. 3. History of irritable bowel syndrome with last colonoscopy noted in 2014. 4. Dementia, Alzheimer's type with behavioral disturbances. DISCHARGE DIAGNOSIS: 1. Left lower leg deep venous thrombosis discharged on Xarelto. 2. Bilateral pulmonary embolism with extensive branches in the right pulmonary artery and also a pulmonary infarct in the superolateral aspect of the superior segment of the right lobe treated with Lovenox and transitioned to Xarelto. 3. Right upper quadrant abdominal pain with findings consistent with cholelithiasis, but no evidence of acute cholecystitis probably related to the right lung infarct due to #2. 4. History of diverticulosis without any findings of diverticulitis on CT scan. 5. Irritable bowel syndrome with no complications. 6. 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 REASON FOR HOSPITALIZATION: Mr. Saldana is a 68-year-old, male patient that presented to the E. R. on 03/30/18 by his with right upper quadrant pain that started Thursday before admission. His noted that the pain had been coming and going, but on the date of admission he started complaining of severe pain and requested to go to the Emergency Room. The patient is a very poor historian. He has advanced dementia of unknown etiology with behavioral disturbances and most of the history and physical information was obtained from the who is his primary caregiver. Initial laboratory studies in the E. R. showed a white count of 9,[address] of the abdomen and pelvis with contrast per radiology interpretation noted nonspecific enhancement of the wall of the gallbladder with trace of pericholecystic stranding and/or trace of fluid raising concerns for cholecystitis. Dr. Gamez, Emergency Room physician, consulted with Dr. Rob who requested the patient be admitted to the Medical/ Surgical Floor for further surgical workup and consultation. Mr. Saldana was then admitted to the Medical/Surgical floor in stable condition for further evaluation of acute cholecystitis initially, however after admission several days it was noted that he had some swelling in his lower extremities and a workup with ultrasound showed that he had a DVT. This was followed-up with a CT of the chest which did note that he had bilateral pulmonary embolisms and he was started on treatment with 1 mg per kg of Lovenox. The patient does have a significant dementia of uncertain etiology at this point that has debilitated the patient significantly and his is his primary care provider. He was admitted in stable condition. LABORATORY STUDIES: CBC showed to be within normal limits except for mild anemia with a stable hemoglobin at 12.3 and hematocrit 37.6. Coagulation studies showed a normal PT and PTT. Chemistries showed normal electrolytes. Creatinine was 0.5 with BUN 10. Liver functions were all within normal limits. Lipase was normal at 34. Urinalysis was unremarkable, being within normal limits. RADIOLOGY: He did have a chest x-ray as well as an abdominal/pelvic CT with no acute findings on the chest x-ray. The pelvis CT per radiology interpretation found concerns for acute cholecystitis. He was then worked up with a gallbladder ultrasound and per radiology interpretation there was note of cholelithiasis without evidence of acute cholecystitis. The common bile duct measured 7 mm. MEDICAL CONSULTATION: Dr. Rob, who was nice enough to follow the patient and recommended that the patient is needed to could be worked up as an outpatient as he was not showing any evidence of acute cholecystitis. He then had a lower extremity ultrasound as he was having some lower extremity edema on the left which did show evidence of an extensive occlusive deep venous thrombus in the left leg. Please see that report for full details. Given the thrombus noted, this was followed-up with CT of the chest and per radiology interpretation there was note of a large saddle embolus and bilateral pulmonary emboli with extensive branches in the right pulmonary artery with a likely pulmonary infarct of the superior and lateral aspects of the superior segment of the right lower lobe. Please see that full report for full details. He had a chest x-ray after the CT of the chest and per radiology interpretation it showed no acute cardiopulmonary process. HOSPITAL COURSE: Mr. Saldana was admitted on 03/30/18 for right upper quadrant pain which was thought initially to be acute cholecystitis. After extensive workup and normal labs and consultation with Dr. Rob, it was noted that he had cholelithiasis but no evidence of cholecystitis. The patient has significant dementia with behavioral disturbances and required quite a bit of Ativan, and was difficult to manage without his . He did have lower extremity edema to the left leg that after workup showed a DVT that was quite extensive. This was followed-up with a CT of the chest which then again as noted above showed a saddle embolus with a right infarct. He was then started on 1 mg per kg Lovenox and then transitioned to Xarelto prior to discharge. The patient was showing to be stable and had no complications, and was felt well enough to be discharged at that point. During the stay, discussion was brought up in regards to the patient's severe dementia and the decision per family was to go with [facility]. [facility] was able to consult with the patient's family and arrangements were made at home with a hospital bed with the patient to go home on [facility]. PHYSICAL EXAMINATION: VITAL SIGNS: On discharge, showed he was afebrile, temperature 97.8, pulse 92, blood pressure 138/84, respirations 18, satting 96% on room air. GENERAL: The patient was seen and examined. He was in no acute distress. He was essentially unchanged in his affect from admission. He was fairly cooperative with exam. CHEST: Lungs remain clear to auscultation. HEART: Regular rate and rhythm. ABDOMEN: Soft, non-tender. Positive bowel sounds. EXTREMITIES: Continuing to show left lower extremity but was slightly reduced compared to admission. Pulses distally showed to be 1+ on the left, 2+ on the right. NEUROLOGIC: He remained confused and easily agitated but showing no other neurologic deficits as far as focal neurologic deficits. PLAN: The patient was discharged on 04/05/18 to have in-home hospice care with [facility]. He was made a DNR while in the hospital and after arrangements were made he was taken home with [facility]. He was continued on treatment for the DVT and pulmonary embolism, and given continued treatment with Xarelto from Dr. Gray' office. INSTRUCTIONS: Activity was may walk as tolerated but limit any strenuous activity until cleared by Dr. Gray. Diet is to encourage diet as the patient tolerates, including increase in supplementation of protein drinks or increased calorie count. Medications at discharge were continued as prior to hospitalization. New medications at discharge included: 1. Xarelto 50 mg b.i.d. for 21 days to be followed-up with Xarelto 20 mg daily for at least a total of 90 days to be reevaluated at that time for continued treatment. His condition at discharge was stable and improved, although his mental status was unchanged. DISPOSITION: The patient was discharged to the care of his family and hospice care. #[id number] [facility]
== END 2018-04-05 15:15 | disposition hospice, home (50) | DRG 444 ==
LOC: ER 21:36 → OBSVTOIN 03-30 02:00 → MS 03-30 02:00
PROVIDERS: ADMIT Nurse Practitioner Family; ATTEND Nurse Practitioner Family
DX: K80.20 Calculus of gallbladder without cholecystitis without obstruction (principal); I26.99 Other pulmonary embolism without acute cor pulmonale; F02.81 Dementia in other diseases classified elsewhere, unspecified severity, with behavioral disturbance; I82.432 Acute embolism and thrombosis of left popliteal vein; K57.90 Diverticulosis of intestine, part unspecified, without perforation or abscess without bleeding; K58.1 Irritable bowel syndrome with constipation; G30.9 Alzheimer's disease, unspecified; F91.8 Other conduct disorders; Z79.82 Long term (current) use of aspirin; Z87.891 Personal history of nicotine dependence

== ENCOUNTER → 2018-04-08 | Outpatient (CLI) | payer MEDICARE, OTHER | LOC: GMAL 09:34 | PROVIDERS: ATTEND Family Medicine | DX: N39.0 Urinary tract infection, site not specified (principal) ==

== ENCOUNTER → 2018-04-21 | Outpatient (CLI) | payer MEDICARE, OTHER | LOC: SOLHH 12:11 | PROVIDERS: ATTEND Family Medicine | DX: R09.3 Abnormal sputum (principal) ==

== ENCOUNTER 2018-04-25 19:11 | Observation (INO) | payer MEDICARE, OTHER ==
--- NOTE | 2018-04-25 19:52 | RAD ---
EXAM DESCRIPTION: Chest,1 View CLINICAL HISTORY:68 years Male, ams, recent pe's Comparison: 04/02/2018 additional correlation with CTA chest 04/01/2018 FINDINGS: Single AP view of the chest Cardiomediastinal silhouette is within normal limits. No focal lung consolidation. Biapical pleural scarring. No pleural effusion. No pneumothorax. No acute osseous finding. IMPRESSION: No acute chest finding. Electronically signed by: Parisa Bran MD 04/25/2018 7:50 PM [employer]
--- NOTE | 2018-04-25 20:15 | CT ---
EXAM DESCRIPTION: Head CLINICAL HISTORY: 68 years, Male, ams, on xarelto TECHNIQUE: 5mm slice thickness axial images through the brain were performed in the absence of intravenous contrast. This exam was performed according to our departmental dose-optimization program which includes use of Automated Exposure Control, adjustment of the mA and/or kV according to patient size and/or use of iterative reconstruction technique. COMPARISON: Noncontrast head CT dated 02/11/2018. FINDINGS: Involutional changes are age appropriate. No hemorrhage is identified. The lateral ventricles are not out of proportion to the degree of volume loss. The basal cisterns are patent. NO dense MCA sign. Intact insular cortex. The visualized paranasal sinuses and mastoid air cells are patent aside from mucosal thickening of the maxillary and frontal sinuses. No fracture is identified. Vascular calcifications. IMPRESSION: No acute cortical infarct is detected by noncontrast CT at this time. No hemorrhage. Chronic maxillary and frontal sinus disease. Electronically signed by: Nkechi Burnett MD 04/25/2018 8:14 PM [facility]
--- NOTE | 2018-04-25 20:41 | ED.PDOC ---
History of Present Illness - General Chief Complaint: General Stated Complaint: altered mental status Time Seen by Provider: 04/25/18 19:12 Source: patient Exam Limitations: no limitations - History of Present Illness Initial Comments: the patient is 68-year-old male presenting to the emergency room after essentially becoming unresponsive at home. The patient had finished his supper when family reports that he reached up with his right hand and grabbed his nose and would not let go. He would not respond to them. They could not pull his arm down. Once that arm came down he reached up with his left hand and did the same. He was nonverbal during that time. family reports that he stopped breathing when he was doing this. He subsequently slumped to the floor where he started breathing again but was essentially unresponsive. He has had his head turned slightly towards the left and was unable to be moved. He was not having any clonic movements of his extremities. He would not withdraw to pain. He would not allow you to open his eyes. Eyes were obviously moving underneath the eyelids. This is how he presented here. Glucose is 195. Immediately after receiving 2 mg of Ativan IV this behavior stopped and he was awake and speaking, and moving all extremities well. He has no recollection of the event. He did lose his urine. No biting of the tongue. No evidence of any trauma. Family actually reports that he is more awake right now than he has been in the last 6 months. Timing/Duration: 1/2 hour Severity: severe Improving Factors: nothing Worsening Factors: nothing Allergies/Adverse Reactions: Allergies NO KNOWN ALLERGY Allergy (Verified 03/30/18 03:36) Home Medications: Ambulatory Orders Aspirin [Baby Aspirin] 81 mg PO BEDTIME 03/08/15 Montelukast Sodium 10 mg PO DAILY 03/08/15 Multiple Vitamins W/ Minerals [Centrum] 1 tab PO BEDTIME 03/08/15 Rosuvastatin [Crestor] 5 mg PO DAILY 03/08/15 Tamsulosin [Flomax] 0.4 mg PO DAILY 03/08/15 Loratadine [Claritin] 10 mg PO DAILY 08/12/17 ALPRAZolam [Xanax] 0.5 mg PO Q6HRS PRN 03/30/18 Donepezil Hydrochloride [Donepezil HCl] 10 mg PO BEDTIME 03/30/18 Fluticasone Prop 0.05% Nasal [Flonase Nasal [place]] 1 spray BNAS DAILY 03/30/18 LORazepam [Ativan] 0.5 mg PO Q6HRS 03/30/18 Megestrol Acetate 40 mg PO DAILY 03/30/18 Megestrol Acetate 200 mg PO DAILY 03/30/18 Memantine [Namenda] 10 mg PO BID 03/30/18 Polyethylene Glycol 3350 [Miralax] 1 pack PO DAILY 03/30/18 Potassium Gluconate 595 mg PO DAILY 03/30/18 Sertraline HCl [Zoloft] 50 mg PO BEDTIME 03/30/18 Rivaroxaban [Xarelto Starter Pack 15 & 20 mg] 2 tab PO . DIRECTED #1 pack Review of Systems - Review of Systems Review of Systems: 04/25/18 20:41 unable to give secondary to condition upon arrival. After the seizure resolved but still difficult to get a review of systems secondary to his dementia. Constitutional: States: malaise EENTM: States: no symptoms reported Respiratory: States: no symptoms reported Cardiology: States: no symptoms reported Gastrointestinal/Abdominal: States: no symptoms reported Genitourinary: States: no symptoms reported Musculoskeletal: States: no symptoms reported Skin: States: no symptoms reported Neurological: States: see HPI Endocrine: States: no symptoms reported All other Systems: No Change from Baseline Past Medical History (General) - Patient Medical History Hx Seizures: No Hx Stroke: No Hx Dementia: No Hx Asthma: No Hx of COPD: No Hx Cardiac Disorders: No Hx Congestive Heart Failure: No Hx Pacemaker: No Hx Hypertension: No Hx Thyroid Disease: No Hx Diabetes: No Hx Gastroesophageal Reflux: No Hx Renal Disease: No Hx Cancer: No Hx of HIV: No Hx Hepatitis C: No Hx MRSA: No MRSA Source:: Wound - Vaccination History Hx Tetanus, Diphtheria Vaccination: No Hx Influenza Vaccination: Yes Hx Pneumococcal Vaccination: No Immunizations Up to Date: Yes - Social History Hx Tobacco Use: No Hx Chewing Tobacco Use: No Hx Alcohol Use: No Hx Substance Use: No Hx Substance Use Treatment: No Hx Depression: No Hx Physical Abuse: No Hx Emotional Abuse: No Hx Suspected Abuse: No Family Medical History - Family History Grandparents Family History: Unknown Mother Family History: Unknown Living Status: Still Living Hx Family Hypertension: Yes Hx Family Cancer: Yes - colon and ovarian Father Family History: Unknown Living Status: Hx Family;Other: biological father before patient was born in car accident. Physical Exam - Physical Exam General Appearance: Other - see history of present illness Eye Exam: bilateral other - eyes are initially closed tight. He is obviously moving the eyes underneath the eyelids randomly Ears, Nose, Throat: normal pharynx - after seizure, other - jaws clenched tight. Neck: other - patient's neck is largely immobile initially during the seizure with a slight leftward tilt. After the seizure he has full range of motion without any difficulty. Respiratory: lungs clear, normal breath sounds, no respiratory distress, no accessory muscle use Cardiovascular/Chest: normal peripheral pulses, regular rate, rhythm, no edema, tachycardia Peripheral Pulses: radial,right: 2+, radial,left: 2+, dorsalis pedis,right: 2+, dorsalis pedis,left: 2+ Gastrointestinal/Abdominal: non tender, soft Rectal Exam: deferred Back Exam: no vertebral tenderness Extremity: non-tender, no pedal edema, no calf tenderness, normal capillary refill Neurologic: mail list processor II-XII nml as tested - after seizure, no motor/sensory deficits - after seizure, other - initially the patient is unresponsive. He is not even withdrawing to pain. He is fairly rigid. After the seizure he recognizes his family members and knows what town he is in. He is limited otherwise due to dementia. Skin Exam: normal color Comments: Vital Signs - 24 hr 04/25/18 04/25/18 19:16 19:22 Temperature 98.5 F Pulse Rate [ 114 H Right] Respiratory 16 16 Rate Blood Pressure 125/82 [Left Arm] O2 Sat by Pulse 97 Oximetry Progress - Progress Progress: 04/25/18 20:45 the patient is 68-year-old male with advanced dementia presenting secondary to what appears to be a complex partial seizure with secondary generalization lasting approximately 20-25 minutes. This is his first known seizure activity. The episode resolved immediately after a dose of Ativan with really very minimal postictal symptoms. Source of the seizure is uncertain. head CT was negative. It may simply be that he missed a dose of his routine Ativan that he takes at home. He has received a liter of IV fluids. A urinalysis still is to be collected. Admit for observation overnight to make sure he does not have further seizure activity that needs to be managed. - Results/Orders Results/Orders: head CT shows no evidence of any intracranial hemorrhage or significant hydrocephalus. Does have chronic changes present. Chest x-ray shows no acute pathology. Laboratory Tests 04/25/18 04/25/18 04/25/18 19:25 19:25 19:25 WBC 8.0 RBC 4.84 Hgb 13.8 L Hct 42.5 MCV 87.9 MCH 28.5 MCHC 32.5 L RDW 14.5 Plt Count 457 H MPV 7.0 L Absolute Neuts (auto) 4.50 Absolute Lymphs (auto) 2.80 Absolute Monos (auto) 0.60 Absolute Eos (auto) 0.10 Absolute Basos (auto) 0.10 Neutrophils % 55.5 Lymphocytes % 34.4 Monocytes % 7.4 Eosinophils % 1.8 Basophils % 0.9 PT 10.3 INR 1.03 PTT (SP) 25.9 Sodium 139 Potassium 3.7 Chloride 107 Carbon Dioxide 23 Anion Gap 12.7 BUN 18 Creatinine 0.75 BUN/Creatinine Ratio 24.0 H POC Glucose Random Glucose 179 H Serum Osmolality 283.9 Lactic Acid Calcium 9.1 Magnesium 2.1 Total Bilirubin 0.5 AST 21 ALT 17 Alkaline Phosphatase 71 Creatine Kinase 24 L CK-MB (CK-2) 1.3 Troponin I < 0.02 B-Natriuretic Peptide 14.4 Serum Total Protein 7.0 Albumin 3.7 Globulin 3.3 Albumin/Globulin Ratio 1.1 04/25/18 04/25/18 19:25 19:25 WBC RBC Hgb Hct MCV MCH MCHC RDW Plt Count MPV Absolute Neuts (auto) Absolute Lymphs (auto) Absolute Monos (auto) Absolute Eos (auto) Absolute Basos (auto) Neutrophils % Lymphocytes % Monocytes % Eosinophils % Basophils % PT INR PTT (SP) Sodium Potassium Chloride Carbon Dioxide Anion Gap BUN Creatinine BUN/Creatinine Ratio POC Glucose 195 H Random Glucose Serum Osmolality Lactic Acid 3.0 H* Calcium Magnesium Total Bilirubin AST ALT Alkaline Phosphatase Creatine Kinase CK-MB (CK-2) Troponin I B-Natriuretic Peptide Serum Total Protein Albumin Globulin Albumin/Globulin Ratio Departure - Departure Clinical Impression: Seizure Disposition: Admit Patient Condition: Fair Departure Forms: ED Discharge - Pt. Copy, Patient Portal Self Enrollment Referrals: Benton Gray III, MD [Primary Care Provider] - 1-2 Weeks Home Medications: Ambulatory Orders Aspirin [Baby Aspirin] 81 mg PO BEDTIME 03/08/15 Montelukast Sodium 10 mg PO DAILY 03/08/15 Multiple Vitamins W/ Minerals [Centrum] 1 tab PO BEDTIME 03/08/15 Rosuvastatin [Crestor] 5 mg PO DAILY 03/08/15 Tamsulosin [Flomax] 0.4 mg PO DAILY 03/08/15 Loratadine [Claritin] 10 mg PO DAILY 08/12/17 ALPRAZolam [Xanax] 0.5 mg PO Q6HRS PRN 03/30/18 Donepezil Hydrochloride [Donepezil HCl] 10 mg PO BEDTIME 03/30/18 Fluticasone Prop 0.05% Nasal [Flonase Nasal [place]] 1 spray BNAS DAILY 03/30/18 LORazepam [Ativan] 0.5 mg PO Q6HRS 03/30/18 Megestrol Acetate 40 mg PO DAILY 03/30/18 Megestrol Acetate 200 mg PO DAILY 03/30/18 Memantine [Namenda] 10 mg PO BID 03/30/18 Polyethylene Glycol 3350 [Miralax] 1 pack PO DAILY 03/30/18 Potassium Gluconate 595 mg PO DAILY 03/30/18 Sertraline HCl [Zoloft] 50 mg PO BEDTIME 03/30/18 Rivaroxaban [Xarelto Starter Pack 15 & 20 mg] 2 tab PO . DIRECTED #1 pack Decision To Admit - Decistion To Admit Decision to Admit Reason: Medical Nature Decision to Admit Date: 04/25/18 Decision to Admit Time: 20:47
[2018-04-25] MEDS ORDERED: IV SET AND CAP CHANGE INJ INJ SCH (22:00)
[2018-04-25] MEDS ORDERED: ONDANSETRON INJ 4 MG/2 ML VIAL IV PRN (22:00)
[2018-04-25] MEDS ORDERED: ACETAMINOPHEN 325 MG TAB PO PRN (22:00)
[2018-04-25] MEDS ORDERED: KCL 20MEQ/0.45% NS 1,000 ML IVS PRN (22:09)
[2018-04-25] MEDS: SODIUM CHLORIDE 0.9% (FLUSH) 10 ML SYG IV PRN (23:11)
[2018-04-26 02:11] VITALS: BP 130/71; TEMP 97.6
[2018-04-26] MEDS: SODIUM CHLORIDE 0.9% (FLUSH) 10 ML SYG IV PRN (06:26)
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
[2018-04-26 11:14] VITALS: O2SAT 95
== END 2018-04-26 10:30 | disposition hospice, home (50) ==
LOC: ER 19:11 → MS 21:12
PROVIDERS: ADMIT Nurse Practitioner Family; ATTEND Nurse Practitioner
DX: R41.82 Altered mental status, unspecified (principal); F03.90 Unspecified dementia, unspecified severity, without behavioral disturbance, psychotic disturbance, mood disturbance, and anxiety; K57.30 Diverticulosis of large intestine without perforation or abscess without bleeding; K58.9 Irritable bowel syndrome, unspecified; J32.0 Chronic maxillary sinusitis; J32.1 Chronic frontal sinusitis; Z66 Do not resuscitate; Z79.01 Long term (current) use of anticoagulants; Z79.82 Long term (current) use of aspirin; Z79.899 Other long term (current) drug therapy; Z86.718 Personal history of other venous thrombosis and embolism; Z86.711 Personal history of pulmonary embolism; Z87.891 Personal history of nicotine dependence; Z80.0 Family history of malignant neoplasm of digestive organs
CPT/HCPCS: 96374; 96376; J2060 ×2; J3480; 82553; 80053; 82948; 36415; 85025; 82550; 83735; 85730; 84146; 85610; 84443; 84484; 83880; 36416; 83605; 71045; 70450; 94760 ×4; 99285

== ENCOUNTER 2018-05-18 11:31 | Inpatient (IN) | payer OTHER ==
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
[2018-05-18] MEDS: IV SET AND CAP CHANGE INJ INJ SCH (12:37)
[2018-05-18] MEDS ORDERED: diazePAM 5 MG TAB PO PRN (12:42)
[2018-05-18] MEDS ORDERED: ONDANSETRON INJ 4 MG/2 ML VIAL IV PRN (12:46)
[2018-05-18] MEDS ORDERED: HALOPERIDOL LACTATE INJ 5 MG/ML VIAL IV PRN (12:52)
[2018-05-18] MEDS: RIVAROXABAN 15 MG TAB PO SCH (16:48)
[2018-05-18] MEDS: CIPROFLOXACIN 250 MG TAB PO SCH (20:27)
[2018-05-18] MEDS: MEMANTINE 10 MG TAB PO SCH (20:27)
[2018-05-18] MEDS: TAMSULOSIN 0.4 MG CAP PO SCH (20:27)
[2018-05-18] MEDS: HALOPERIDOL LACTATE INJ 5 MG/ML VIAL IV PRN (20:42)
[2018-05-18] MEDS: SODIUM CHLORIDE 0.9% (FLUSH) 10 ML SYG IV PRN (20:50)
[2018-05-19] MEDS: MORPHINE SULFATE INJ 10 MG/ML VIAL IV PRN ×2 (01:41→05:41)
[2018-05-19] MEDS: SODIUM CHLORIDE 0.9% (FLUSH) 10 ML SYG IV PRN ×3 (07:24→09:23)
[2018-05-19] MEDS: RIVAROXABAN 15 MG TAB PO SCH ×2 (08:06→16:52)
[2018-05-19] MEDS: CIPROFLOXACIN 250 MG TAB PO SCH ×2 (08:06→20:42)
[2018-05-19] MEDS: HALOPERIDOL LACTATE INJ 5 MG/ML VIAL IV PRN (08:14)
[2018-05-19] MEDS: DONEPEZIL HCL 5 MG TAB PO SCH (09:18)
[2018-05-19] MEDS: TAMSULOSIN 0.4 MG CAP PO SCH ×2 (09:19→20:42)
[2018-05-19] MEDS: MEMANTINE 10 MG TAB PO SCH ×2 (09:19→20:43)
[2018-05-19] MEDS: FINASTERIDE 5 MG TAB PO SCH (09:19)
[2018-05-19] MEDS ORDERED: LORazepam 1 MG TAB PO PRN (11:07)
[2018-05-19] MEDS: HALOPERIDOL TAB 5MG PO SCH ×2 (12:10→20:42)
[2018-05-19] MEDS: LORazepam 1 MG TAB PO SCH ×6 (12:53→22:57)
--- NOTE | 2018-05-19 17:12 | PN ---
DATE: 05/19/18 SUPERVISING PHYSICIAN: Brian Baker M.D. SUBJECTIVE: The patient is much more calm today. He actually went outside with his sitters in a wheelchair. OBJECTIVE: VITAL SIGNS: Temperature 98.6, pulse 70, blood pressure 119/62, respirations 95 on room air at rest. CHEST: Lungs were clear to auscultation, just diminished towards the bases. HEART: Regular rate and rhythm. ABDOMEN: Soft, non-tender. Positive bowel sounds. EXTREMITIES: The patient is alert and not combative at this point but he is obviously confused which is his normal baseline. ASSESSMENT: 1. Endstage dementia on hospice care with [facility]. 2. History of pulmonary embolism and deep venous thrombosis on chronic Xarelto. PLAN: Will continue to follow the patient with inpatient hospice through [facility] who is managing orders. Anticipate discharge at [facility] discretion. Anticipation once the patient is more stable as far as his mental aggressiveness. Until discharge will continue to monitor and treat as needed. #[id number] [facility]
[2018-05-19] MEDS: OLANZapine ODT 5 MG TAB PO SCH (20:42)
[2018-05-20] MEDS: LORazepam 1 MG TAB PO SCH ×13 (01:17→22:38)
[2018-05-20] MEDS: RIVAROXABAN 15 MG TAB PO SCH ×2 (07:42→19:44)
[2018-05-20] MEDS: DONEPEZIL HCL 5 MG TAB PO SCH (12:14)
[2018-05-20] MEDS: HALOPERIDOL TAB 5MG PO SCH ×2 (12:16→20:55)
[2018-05-20] MEDS: MEMANTINE 10 MG TAB PO SCH ×2 (12:16→20:55)
[2018-05-20] MEDS: CIPROFLOXACIN 250 MG TAB PO SCH ×2 (12:16→20:55)
[2018-05-20] MEDS: TAMSULOSIN 0.4 MG CAP PO SCH ×2 (12:16→20:55)
[2018-05-20] MEDS: FINASTERIDE 5 MG TAB PO SCH (12:17)
[2018-05-20] MEDS: SCOPOLAMINE PATCH 1.5MG 1 EA TD SCH (12:20)
[2018-05-20] MEDS: MORPHINE SULFATE INJ 10 MG/ML VIAL IV PRN ×2 (14:58→20:16)
[2018-05-20] MEDS: OLANZapine ODT 5 MG TAB PO SCH (20:55)
[2018-05-20] MEDS ORDERED: FUROSEMIDE INJ 20 MG/2 ML VIAL NEB PRN (22:02)
[2018-05-20] MEDS ORDERED: MORPHINE SULFATE INJ 10 MG/ML VIAL NEB PRN (22:09)
--- NOTE | 2018-05-20 22:58 | PN ---
DATE: 05/20/18 SUPERVISING PHYSICIAN: Brian Baker M.D. SUBJECTIVE: The patient is now fairly sedated, very minimally active. His remains at his bedside. When he does become active, he is very disoriented and quite hard to control. OBJECTIVE: VITAL SIGNS: Remain stable. CHEST: Clear. HEART: Regular rate and rhythm. ABDOMEN: Soft, non-tender. Positive bowel sounds. EXTREMITIES: Without any clubbing, cyanosis or edema. NEUROLOGIC: He continues very lethargic at times and when aroused becomes quite agitated. LABORATORY: No laboratory or radiographic studies available for review. ASSESSMENT: 1. Endstage dementia on hospice care with [facility]. 2. History of pulmonary embolism and deep venous thrombosis on chronic Xarelto. PLAN: Will continue to follow the patient through hospice, [facility]. I talked with the and encouraged her that at some point he could go home since he is now well controlled, but this is a decision between [facility] and the family. Until the patient has transitioned back home, will continue to follow and treat as needed. #[id number] [facility]
[2018-05-21] MEDS: LORazepam 1 MG TAB PO SCH ×11 (00:56→23:19)
[2018-05-21] MEDS: MORPHINE SULFATE INJ 10 MG/ML VIAL IV PRN ×3 (07:51→19:30)
[2018-05-21] MEDS: DONEPEZIL HCL 5 MG TAB PO SCH (08:38)
[2018-05-21] MEDS: RIVAROXABAN 15 MG TAB PO SCH ×2 (08:38→19:25)
[2018-05-21] MEDS: CIPROFLOXACIN 250 MG TAB PO SCH ×2 (08:38→21:00)
[2018-05-21] MEDS: HALOPERIDOL TAB 5MG PO SCH ×2 (08:39→21:00)
[2018-05-21] MEDS: FINASTERIDE 5 MG TAB PO SCH (08:39)
[2018-05-21] MEDS: TAMSULOSIN 0.4 MG CAP PO SCH ×2 (08:39→21:00)
[2018-05-21] MEDS: MEMANTINE 10 MG TAB PO SCH ×2 (08:39→21:00)
[2018-05-21] MEDS: IPRATROPIUM/ALBUTEROL 3 ML VIAL NEB PRN ×2 (09:05→14:35)
[2018-05-21] MEDS: MORPHINE SULFATE INJ 10 MG/ML VIAL NEB PRN ×2 (09:12→14:35)
[2018-05-21] MEDS: IV SET AND CAP CHANGE INJ INJ SCH (14:11)
[2018-05-21] MEDS: FUROSEMIDE INJ 40 MG/4 ML VIAL INH PRN (14:35)
[2018-05-21] MEDS: SODIUM CHLORIDE 0.9% (FLUSH) 10 ML SYG IV PRN ×2 (19:29→21:05)
[2018-05-21] MEDS ORDERED: cefTRIAXone SODIUM 1 GM VIAL ONE (20:52)
[2018-05-21] MEDS ORDERED: SODIUM CHL 0.9% 50ML MIN-BAG+ 50 ML IVPB ONE (20:52)
[2018-05-21] MEDS: OLANZapine ODT 5 MG TAB PO SCH (21:00)
[2018-05-21] MEDS: cefTRIAXone SODIUM 1 GM in SODIUM CHL 0.9% 50ML MIN-BAG+ 50 ML IVPB SCH (21:04)
[2018-05-22] MEDS: LORazepam 1 MG TAB PO SCH ×13 (01:00→23:05)
[2018-05-22] MEDS: MORPHINE SULFATE INJ 10 MG/ML VIAL IV PRN ×4 (02:04→21:59)
[2018-05-22] MEDS: SODIUM CHLORIDE 0.9% (FLUSH) 10 ML SYG IV PRN ×3 (02:04→20:16)
[2018-05-22] MEDS: IPRATROPIUM/ALBUTEROL 3 ML VIAL NEB PRN (02:27)
[2018-05-22] MEDS: FUROSEMIDE INJ 40 MG/4 ML VIAL INH PRN (02:27)
[2018-05-22] MEDS: MORPHINE SULFATE INJ 10 MG/ML VIAL NEB PRN (02:28)
[2018-05-22] MEDS: RIVAROXABAN 15 MG TAB PO SCH ×2 (07:36→17:45)
[2018-05-22] MEDS: DONEPEZIL HCL 5 MG TAB PO SCH (08:33)
[2018-05-22] MEDS: HALOPERIDOL TAB 5MG PO SCH ×2 (08:33→20:47)
[2018-05-22] MEDS: TAMSULOSIN 0.4 MG CAP PO SCH ×2 (08:33→20:47)
[2018-05-22] MEDS: CIPROFLOXACIN 250 MG TAB PO SCH ×2 (08:33→20:46)
[2018-05-22] MEDS: MEMANTINE 10 MG TAB PO SCH ×2 (08:33→20:47)
[2018-05-22] MEDS: FINASTERIDE 5 MG TAB PO SCH (08:34)
[2018-05-22] MEDS: ATROPINE 1% OPHTH SOL 1 DROP DROPS SL PRN ×2 (10:09→20:31)
[2018-05-22] MEDS ORDERED: SODIUM CHL 0.9% 50ML MIN-BAG+ 50 ML IVPB ONE (20:12)
[2018-05-22] MEDS ORDERED: cefTRIAXone SODIUM 1 GM VIAL ONE (20:12)
[2018-05-22] MEDS: cefTRIAXone SODIUM 1 GM in SODIUM CHL 0.9% 50ML MIN-BAG+ 50 ML IVPB SCH (20:16)
[2018-05-22] MEDS: OLANZapine ODT 5 MG TAB PO SCH (20:47)
[2018-05-23] MEDS: LORazepam 1 MG TAB PO SCH ×12 (01:12→23:36)
[2018-05-23] MEDS: MORPHINE SULFATE INJ 10 MG/ML VIAL IV PRN ×4 (05:37→20:18)
[2018-05-23] MEDS: CIPROFLOXACIN 250 MG TAB PO SCH ×2 (08:19→20:35)
[2018-05-23] MEDS: HALOPERIDOL TAB 5MG PO SCH ×2 (08:19→20:35)
[2018-05-23] MEDS: RIVAROXABAN 15 MG TAB PO SCH ×2 (08:19→16:49)
[2018-05-23] MEDS: TAMSULOSIN 0.4 MG CAP PO SCH ×2 (08:19→20:35)
[2018-05-23] MEDS: DONEPEZIL HCL 5 MG TAB PO SCH (08:19)
[2018-05-23] MEDS: MEMANTINE 10 MG TAB PO SCH ×2 (08:20→20:35)
[2018-05-23] MEDS: FINASTERIDE 5 MG TAB PO SCH (08:20)
[2018-05-23] MEDS: ATROPINE 1% OPHTH SOL 1 DROP DROPS SL PRN ×4 (09:15→20:44)
[2018-05-23] MEDS: SCOPOLAMINE PATCH 1.5MG 1 EA TD SCH (12:22)
[2018-05-23] MEDS ORDERED: cefTRIAXone SODIUM 1 GM VIAL ONE (19:26)
[2018-05-23] MEDS ORDERED: SODIUM CHL 0.9% 50ML MIN-BAG+ 50 ML IVPB ONE (19:26)
[2018-05-23] MEDS: cefTRIAXone SODIUM 1 GM in SODIUM CHL 0.9% 50ML MIN-BAG+ 50 ML IVPB SCH (20:09)
[2018-05-23] MEDS: OLANZapine ODT 5 MG TAB PO SCH (20:35)
[2018-05-24] MEDS: LORazepam 1 MG TAB PO SCH ×5 (01:10→09:57)
[2018-05-24] MEDS: MORPHINE SULFATE INJ 10 MG/ML VIAL IV PRN ×7 (01:39→19:49)
[2018-05-24] MEDS: TAMSULOSIN 0.4 MG CAP PO SCH (09:57)
[2018-05-24] MEDS: RIVAROXABAN 15 MG TAB PO SCH (09:57)
[2018-05-24] MEDS: CIPROFLOXACIN 250 MG TAB PO SCH (09:57)
[2018-05-24] MEDS: HALOPERIDOL TAB 5MG PO SCH (09:57)
[2018-05-24] MEDS: DONEPEZIL HCL 5 MG TAB PO SCH (09:57)
[2018-05-24] MEDS: MEMANTINE 10 MG TAB PO SCH (09:58)
[2018-05-24] MEDS: FINASTERIDE 5 MG TAB PO SCH (09:58)
[2018-05-24] MEDS: IV SET AND CAP CHANGE INJ INJ SCH ×2 (10:06→12:10)
[2018-05-24] MEDS: ATROPINE 1% OPHTH SOL 1 DROP DROPS SL PRN (10:30)
[2018-05-24] MEDS ORDERED: MORPHINE SULFATE INJ 10 MG/ML VIAL IM PRN (16:26)
[2018-05-24] MEDS ORDERED: SODIUM CHL 0.9% 50ML MIN-BAG+ 50 ML IVPB ONE (21:03)
[2018-05-24] MEDS ORDERED: cefTRIAXone SODIUM 1 GM VIAL ONE (21:04)
[2018-05-24] MEDS: cefTRIAXone SODIUM 1 GM in SODIUM CHL 0.9% 50ML MIN-BAG+ 50 ML IVPB SCH (21:07)
[2018-05-25] MEDS: MORPHINE SULFATE INJ 10 MG/ML VIAL IV PRN ×2 (03:43→06:01)
[2018-05-25] MEDS ORDERED: MORPHINE SULFATE INJ 10 MG/ML VIAL IV PRN (09:54)
[2018-05-25] MEDS: SODIUM CHLORIDE 0.9% (FLUSH) 10 ML SYG IV PRN (10:03)
[2018-05-25 10:24] VITALS: BP 135/82; TEMP 100.3
[2018-05-25 16:12] VITALS: O2SAT 83
[2018-05-25] MEDS: MORPHINE SULFATE INJ 10 MG/ML VIAL IV SCH ×5 (16:55→23:45)
[2018-05-25] MEDS ORDERED: SODIUM CHL 0.9% 50ML MIN-BAG+ 50 ML IVPB ONE (20:09)
[2018-05-25] MEDS ORDERED: cefTRIAXone SODIUM 1 GM VIAL ONE (20:09)
[2018-05-25] MEDS: cefTRIAXone SODIUM 1 GM in SODIUM CHL 0.9% 50ML MIN-BAG+ 50 ML IVPB SCH (20:15)
[2018-05-25] MEDS ORDERED: HALOPERIDOL LACTATE INJ 5 MG/ML VIAL IV SCH (21:00)
[2018-05-26] MEDS: MORPHINE SULFATE INJ 10 MG/ML VIAL IV SCH (01:41)
--- NOTE | 2018-05-28 10:47 | DS ---
SUPERVISING PHYSICIAN: Leonard Whipple MD ADMISSION DIAGNOSIS: 1. Endstage dementia on hospice care. 2. Pulmonary embolism and deep venous thrombosis on chronic Xarelto. DISCHARGE DIAGNOSIS: 1. Cardiopulmonary arrest. 2. Endstage dementia having been on hospice care. 3. History of pulmonary embolisms with deep venous thrombosis having been on chronic Xarelto. LABORATORY: There were laboratory studies on admission as he was admitted to hospice care. There were no x-rays and no other diagnostic studies. HOSPITAL COURSE: Mr. Saldana was admitted to inpatient hospice per [facility]. Initially, admission date was 05/18/18. He was on care and comfort measures with orders provided by hospice through [facility] and was maintained comfortable and ultimately succumbed to his underlying illnesses and comorbidities and on the morning of 05/26/18 with family, friends and sitters present. PLAN: The patient was pronounced at approximately 0200 and was present at the bedside. [facility] as notified. [facility] was in charge of the patient's body. [facility] was notified as it was the patients wish to be donated to [employer]. DISPOSITION: The patient left with [facility] on 05/26/18 at 0338. was not unexpected. #[id number] [facility]
== END 2018-05-26 02:25 | disposition expired | DRG 57 ==
LOC: MS 11:31
PROVIDERS: ADMIT Family Medicine; ATTEND Nurse Practitioner
DX: G30.9 Alzheimer's disease, unspecified (principal); F02.80 Dementia in other diseases classified elsewhere, unspecified severity, without behavioral disturbance, psychotic disturbance, mood disturbance, and anxiety; Z51.5 Encounter for palliative care; Z66 Do not resuscitate; K58.9 Irritable bowel syndrome, unspecified; I46.9 Cardiac arrest, cause unspecified; Z86.718 Personal history of other venous thrombosis and embolism; Z79.01 Long term (current) use of anticoagulants; Z87.891 Personal history of nicotine dependence; Z86.711 Personal history of pulmonary embolism